=== PATIENT | male | born 1950 | race Caucasian/White ===

== ENCOUNTER 2024-12-07 09:26 | Outpatient (AMB) | payer MEDICARE, SELFPAY ==
--- NOTE | 2024-12-07 09:28 | MHC.OFFVIS ---
Vital Signs 12/07/24 09:29 Height 64 ft Weight 275 lb BMI 0.3 BP 132/80 Blood Pressure Location Rt brachial Position Sitting Intake Visit Reasons: ENP-Memory Impairement Intake Note: Patient referred for memory impairment Allergies amlodipine Allergy (Unknown, Verified 12/07/24 09:30) Unknown cephalexin Allergy (Unknown, Verified 12/07/24 09:30) Unknown pravastatin Allergy (Unknown, Verified 12/07/24 09:30) Unknown simvastatin Allergy (Unknown, Verified 12/07/24 09:30) Unknown HPI Comments Details: 74y/o male comes here for evaluation of memory issues. He was in the at [facility]- [phone] and concerned taht his issues are related to that. He reports for past 20 years he has been having short term memory issues which is progressing.He forgets appointments, meeting etc.He forgets tow era his hearing aids, forgets to take the exit in the [address] , misplacing keys,has troubel doing cross word puzzles , was unable to help his grand daughter with her toys etc. He gets confused with meds and misses doses. he did not wear his hearing aid today. He sleeps ok but reports excessive daytime sleepiness and fatigue. He snores and wakes up 2-3 times at night.His has notcied witnessed apneas.He takes a nap during the day.He has occasional vivid dreams. He had sleep study 15 years ago and used CPAP for 2 mths only. He was also reporting some dizziness when he bends over. Mood is stable [facility] Medical History Urinary calculi HTN (hypertension) Hyperlipidemia Disturbance in sleep behavior Fatty liver Gout Dysplastic nevus Allergic rhinitis Hard of hearing Urinary incontinence Overweight Chronic shoulder pain Prediabetes GERD (gastroesophageal reflux disease) Surgical History Hx of colonoscopy Family History Father Alcohol abuse by father FH: heart attack Stroke HTN (hypertension) Mother HTN (hypertension) Stroke Diabetes Glaucoma Social History Alcohol intake: current Patient Tobacco Use Status: Former Tobacco user Physical Exam Vital Signs: Last Vital Signs BP 132/80 12/07/24 09:29 BMI result Body Mass Index 0.3 Const General: cooperative and comfortable Nutritional Appearance: obese Orientation/consciousness: patient oriented x3 Eyes Pupils: Equal, round and reactive pupils present Neuro General: patient oriented x3, tone normal, moves all extremities and no focal motor deficits Cranial nerves: Yes Facial sensation intact/muscles of mastication intact, Yes Equal, round and reactive pupils present, Yes Bilaterally intact EOM present, Yes Nystagmus not present, Yes Normal facial strength present, Yes Midline tongue present, Yes Symmetric palate elevation present and Yes Ability to bilaterally elevate shoulders present Cognition (Neuro): normal cognition Gait exam (Neuro): Antalgic gait present Motor exam (neuro): 5/5 motor strength present throughout and Normal motor muscle tone present throughout Deep tendon reflexes (DTR's): Right triceps reflex intensity grade: 1+, Left triceps reflex intensity grade: 1+, Rt Biceps (C5, C6): 1+, Left biceps reflex intensity grade: 1+, Right brachioradialis reflex intensity grade: 1+, Left brachioradialis reflex intensity grade: 1+, Right patellar reflex intensity grade: 1+ and Left patellar reflex intensity grade: 1+ Coordination: [id number] test normal Orientation What is the (year) (season) (date) (day) (month)?: year, season, date, day and month Where are we (state) (county) (town or city) (hospital) (floor)?: state, town or city, hospital/clinic and floor Registration Name of 3 unrelated objects clearly and slowly, then ask patient to repeat all 3 of them. (1st repeat determines score. Make sure they can repeat all three): object 1, object 2 and object 3 Attention & Calculation (CHOOSE ONE) Spell WORLD backwards (DLROW): 5 letters Recall Ask patient to repeat the 3 items from question #3.: object 1 Language Show patient a wristwatch & ask what it is. Repeat for pencil.: watch and pencil Ask the patient to repeat the phrase 'No ifs, ands, or buts' after you.: correct Ask the patient to 'take a piece of paper with their right hand' 'fold paper in half' 'place paper on floor': take paper in right hand, fold paper in half and place paper on floor Print the sentence 'CLOSE YOUR EYES' on a piece. If patient actually closes eyes then score.: followed written direction Give patient a blank piece of paper & ask to write a sentence. Score if it contains a noun & verb.: sentence contains subject and verb Ask patient to copy figure of intersecting pentagons exactly. Score if all 10 angles & 2 intersects are included.: all 10 angles present & 2 are intersected Score Score: 27 Assessment & Plan Assessment & Plan (1) Cognitive disorder: Comment: He tested well on MMSE. The cognitive probelems are likely due to untreated sleep apnea Code(s): F09 - Unspecified mental disorder due to known physiological condition Category: Medical (2) Snoring: Code(s): R06.83 - Snoring Category: Medical (3) Hypersomnia: Code(s): G47.10 - Hypersomnia, unspecified Category: Medical Plan I will evaluate him with MRI Brain Check TSH Vit B 12 CBC CMP Home sleep test to evaluate sleep apnea which is likely contributing to his cognitive issues. Orders: Orders MR head/brain wo con Today F09 - Unspecified mental disorder due to known physiological condition Comprehensive Met. Panel Today F09 - Unspecified mental disorder due to known physiological condition Vitamin D 25-OH (D2 and D3) Today F09 - Unspecified mental disorder due to known physiological condition Erythrocyte Sedimentation Rate Today F09 - Unspecified mental disorder due to known physiological condition TSH reflex Free T4 Today F09 - Unspecified mental disorder due to known physiological condition Vitamin B12 and Folate Today F09 - Unspecified mental disorder due to known physiological condition Complete Blood Count Auto Diff Today F09 - Unspecified mental disorder due to known physiological condition RT home sleep study Today G47.10 - Hypersomnia, unspecified, R06.83 - Snoring Coding Level of Care Code New Pt Level 4 (81801) Diagnoses Cognitive disorder F09 Snoring R06.83 Hypersomnia G47.10
[2024-12-07 09:29] VITALS: BP 132/80
--- OUTSIDE RECORDS SUMMARY | 2024-12-07 10:08 | XMS_ITS | Clinical Summary ---
Author Organization [address] Building Address [address] [place] [phone] Phone Care Team Providers Care Media Account Executive Name Role Phone Olvin Rocha MD Primary Care Provider [phone] Allergies Active Allergy Reactions Criticality Noted Date Comments Amlodipine 09/16/2021 Ankle swelling Cephalexin Monohydrate Dermatitis,Rash 09/02/19 06 Pravastatin Sodium Muscular Issues 10/19/2008 Myalgia and Joint Pain Simvastatin Muscular Issues 12/01/2007 Myalgia and Joint Pain Medications cetirizine (ZyrTEC) 10 mg tablet Take 1 tablet (10 mg total) by mouth 1 (one) time each day. 4 Active triamcinolone acetonide 0.025 % lotion Apply 1 Act topically three times a week for 90 days. 2 Active apixaban (ELIQUIS) 5 mg tablet Take 0.5 tablets (2.5 mg total) by mouth 2 (two) times a day. 4 Active atenoloL (TENORMIN) 50 mg tablet Take 1 tablet (50 mg total) by mouth 1 (one) time each day. 90 tablet 1 4 Active FLUoxetine (PROzac) 40 mg capsule Take 1 capsule (40 mg total) by mouth 1 (one) time each day. 90 each 1 5 Active lovastatin (MEVACOR) 20 mg tablet Take 2 tablets (40 mg total) by mouth at bedtime. at bedtime 180 tablet 1 5 Active Active Problems Problem Noted Date Diagnosed Date GERD (gastroesophageal reflux disease) Bilateral pulmonary embolism (CMS/HCC V24, CMS/H CC V28) 08/17/2023 Prediabetes 03/17/2022 Chronic shoulder pain 09/23/2015 Overweight 09/14/2012 Urinary incontinence 02/11/2012 Overview (06/30/2024): For years; saw Dr Vigil; uses pads which help Hard of hearing 09/11/2011 Overview (06/30/2024): Dr Menard, work related Allergic rhinitis 03/30/2010 Anxiety associated with depression 03/30/2010 Assessment & Plan (10/19/2024 9:33 AM EDT): I have increased his fluoxetine dose to 40 mg daily strongly advised him do his lab work. He declines seeing a therapist. 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 Follow sodium diet. Continue atenolol. Urinary calculus 09/02/2005 Overview (06/30/2024): Musa Encounters Date Type Department Care Team Description 10/31/2024 10:45 AM EDT Evaluation [address] [phone] Jacqui Pat, PT Gait abnormality (Primary Dx) 10/19/2024 9:00 AM EDT Office Visit Internal Medicine - [address] [phone] Olvin Rocha MD Forgetfulness (Primary Dx); Gait abnormality; Anxiety associated with depression; Hypertension, unspecified type; Ankle edema, bilateral; Screen for colon cancer 09/19/2024 Telephone Internal Medicine - [address] [place] [address] Olvin Rocha MD Forms/questionnaires (Handicap placard) from Last 3 Months Immunizations Name Administration Dates Next Due Influenza Quadravalent, MDCK , 0.5ml, with preservative (Flucelvax) 6mo and older 04/06/2017 Influenza trivalent, 0.5mL ( Fluad) 65yo and older 04/14/2022,05/13/2020,04/22/2018,04/15 Influenza trivalent, 0.5mL, preservative free (Fluarix; FluLaval; Fluzone) ages 6mo and older (Afluria) 3 years and older 05/08/2015,04/30/2010,06/07/2008,05/17,06/22/2006 Influenza, Unspecified 04/28/2023,04/23/2014 JEYSONJ/Tim SARS-CoV-2 COVID -19, vector-nr, rS-Ad26, preservative free 10/08/2020 Moderna SARS-CoV-2 COVID-19, mRNA, LNP-S, preservative free 05/11/2023,05/15/2022,05/18/2021 Pneumococcal conjugate 13 va lent (Prevnar 13, PCV13) 2mo and older 07/31/2015 Pneumococcal polysaccharide 23 valent (Pneumovax 23) 2yo and older 09/22/2016 RSV, bivalent, protein subun it RSVpreF, 0.5mL, Preservative Free (Arexvy) 60yo and older 09/27/2023 Td Tetanus diptheria (Tdvax) 7yo and older 01/19/2023,03/17/2022,05/02/2001 Tdap Tetanus diptheria acell ular pertussis (Boostrix; Adacel) 7yo and older 09/22/2016,11/25/2010 Zoster Live 04/14/2015 Zoster recombinant (Shingrix ) 19yo and older 09/12/2020,07/04/2020 Surgical History Surgery Date Site/Laterality Comments MOLE REMOVAL PROCEDURE: HISTORICAL MOLE (REMOVAL OF) COLONOSCOPY 02/27 PROCEDURE: VA COLONOSCOPY STOMA DX INCLUDING COLLJ SPEC SPX; COMMENT: Jermaine; neg OTHER SURGICAL HISTORY 06/17/15 PROCEDURE: COLON CA SCRN NOT HI RSK IND; COMMENT: tics; repeat in 10 yrs Medical History Medical History Date Comments Heartburn 09/02/2005 DX:Heartburn Sleep disturbance, unspecified 09/02/2005 D X:Sleep disturbance, unspecified Urinary calculus, unspecified 09/02/2005 DX :Urinary calculus, unspecified Other and unspecified hyperlipidemia 09/02/2005 DX:Other and unspecified hyperlipidemia Rib fracture 06/01 DX:Rib fracture; COMMENT: seen thru work , not here Fatty liver 02/07/2009 DX:Fatty liver Dysplastic nevus 2009 DX:Dysplastic n evus Esophageal reflux DX:Esophageal reflux Essential hypertension, benign 09/02/2005 D X:Essential hypertension, benign Allergic rhinitis 03/30/2010 DX:Allergic rh initis Depression 03/30/2010 DX:Depression Family History Medical History Relation Name Comments No Known Problems Brother x2 Obesity Daughter Alcohol abuse Father Heart attack Father passed early 40 's Hypertension Father Stroke Father Diabetes Mother HTN, CVA (clot) , glaucoma, cataract Glaucoma Mother Hypertension Mother Stroke Mother passed from str gianfranco No Known Problems Sister Obesity Son Other: dvt Son Blindness Neg Hx Macular degeneration Neg Hx Other cancer Neg Hx Strabismus Neg Hx Relation Name Status Comments Brother x2 Alive Daughter Alive Father Mother Sister Alive Son Alive Social History Tobacco Use Types Packs/Day Years Used Date Smoking Tobacco: Former Cigarettes 0.5 2 0 07/26/1969 - 07/26/1971 Smokeless Tobacco: Never Tobacco Cessation:Counseling Given: Not Answered Alcohol Use Standard Drinks/Week Comments Yes 0 (1 standard drink = 0.6 oz pur e alcohol) Sex and Gender Information Value Date Recorded Sex Assigned at Not on file Legal Sex Male 6:44 AM EST Gender Identity Not on file Sexual Orientation Not on file Obstetrics History Last Filed Vital Signs Vital Sign Reading Time Taken Comments Blood Pressure 132/76 10/19/2024 8:53 AM EDT aut o Pulse 65 10/19/2024 8:53 AM EDT Temperature - - Respiratory Rate - - Oxygen Saturation - - Inhaled Oxygen Concentration - - Weight 123 kg (272 lb 3.2 oz) 10/19/2024 8:53 AM EDT Height 193 cm (6' 4 ) 10/19/2024 8:53 AM EDT Body Mass Index 33.13 10/19/2024 8:53 AM EDT Plan of Treatment Upcoming Encounters Date Type Department Care Team (Late st Contact Info) Description 12/26/2024 4:00 PM EDT Telemedicine Internal Medicine - [address] [phone] Olvin Rocha MD [address] [place] [phone] 03/28/2025 8:30 AM EDT Office Visit Internal Medicine - [address] [phone] Olvin Rocha MD [address] [place] [phone] Health Maintenance Due Date Last Done Comments Falls Risk Assessment 07/04/2022 Social Influencers of Health Screening 07/04/2022 Depression Screening 09/23/2024 09/24/2023 Medicare Annual Wellness Visit 09/23/2024 09/24/2023 COVID-19 Vaccine ( season) 2024 05/12/2024, 05/11/2023, 05/15/2022, Additional history exists Colorectal Cancer Screening: Colonoscopy 06/17/2025 06/17/2015, 06/17/2015 Hypertension/CHF/CAD Annual BMP Blood Test 10/23/2025 10/23/2024, 08/11/2023, 03/17/2023 Cholesterol Screening (Lipid Panel) 10/23/2029 10/23/2024, 03/17/2023 DTaP,Tdap,and Td Vaccines (8 - Td or Tdap) 01/19/2033 01/19/2023, 03/17/2022, 09/22/2016, Additional history exists Abdominal Aortic Aneurysm (AAA) Screen Completed 12/13/2008 Hepatitis C Screening Completed 02/06/2009 Pneumococcal Vaccine: 50+ Years Completed 09/22/2016, 07/31/2015 Zoster Vaccines Completed 09/12/2020, 06/25, 04/14/2015 RSV Immunization Adult Patients Completed 09/27/2023 Influenza Vaccine Completed 05/12/2024, , 04/28/2023, Additional history exists HIB Vaccines Aged Out No longer eligi ble based on patient's age to complete this topic HPV Vaccines Aged Out No longer eligi ble based on patient's age to complete this topic Hepatitis A Vaccines Aged Out No long er eligible based on patient's age to complete this topic Hepatitis B Vaccines Aged Out No long er eligible based on patient's age to complete this topic IPV Vaccines Aged Out No longer eligi ble based on patient's age to complete this topic MMR Vaccines Aged Out No longer eligi ble based on patient's age to complete this topic Meningococcal ACWY Vaccine Aged Out N o longer eligible based on patient's age to complete this topic Meningococcal B Vaccine Aged Out No l onger eligible based on patient's age to complete this topic RSV Immunization Patients Under 20 months Aged Out No longer eligible based on patient's age to complete this topic Varicella Vaccines Aged Out No longer eligible based on patient's age to complete this topic Goals Goal Patient Goal Type Associated Problems Recent Progress Patient-Stated? Author LTGs (x6 visits) General Yes Jacqui Pat, PT Note: Patient will increase L hip flexion and extension strength to >/= 4-/5 for strength and stability during functional mobility Patient will increase L hip abduction strength to >/= 3+ for stability during stance phase and ambulation Patient will decrease time on 5xSTS to </= 12 seconds to show increase in functional strength and decrease in falls risk Patient will increase score on FGA to >/= 24/30 to show increase in dynamic balance and decrease in falls risk Patient will be independent with HEP for maintenance and progression of gains made in skilled physical therapy Procedures Procedure Name Priority Date/Time Associated Diagnosis Comments CBC WITH AUTO DIFFERENTIAL Routine 10/23/2024 8:44 AM EDT Bilateral pulmonary embolism (CMS/HCC V24, CMS/HCC V28) HEMOGLOBIN A1C Routine 10/23/2024 8:44 AM EDT Prediabetes COMPREHENSIVE METABOLIC PANEL Routine 10/23/2024 8:44 AM EDT Hypertension, unspecified type LIPID PANEL WITH REFLEX TO DIRECT LDL Routine 10/23/2024 8:44 AM EDT Hypertension, unspecified type PROSTATE SPECIFIC ANTIGEN SCREEN Routine 10/23/2024 8:44 AM EDT Screening for prostate cancer CBC AND DIFFERENTIAL Routine 10/23/2024 8:44 AM EDT Bilateral pulmonary embolism (CMS/HCC V24, CMS/HCC V28) B-TYPE NATRIURETIC PEPTIDE Routine 10/23/2024 8:44 AM EDT Ankle edema, bilateral DEPRESSION SCREENING Routine 09/24/2023 COLONOSCOPY Routine 06/17/2015 HEPATITIS C SCREENING Routine 02/06/2009 ABDOMINAL AORTIC ANEURYSM SCRREN Routine 12/13/2008 from Last 3 Months or Most Recently Relevant to Health Maintenance Results * Prostate specific antigen screen (10/23/2024 8:44 AM EDT) PSA 0.71 0.00 - 4.00 ng/mL LAB CHEMISTRY METHOD 10/23/2024 2:27 PM EDT [facility] ([facility]) [facility] Blood Venous blood specimen / Unknown Venipuncture / Unknown 10/23/2024 8:44 AM EDT 10/23/2024 8:44 AM EDT Narrative [facility] - 10/23/2024 2:27 PM EDT The Siemens Advia Centaur Chemiluminescent Immunoassay is used. Results obtained with different assay methods or kits cannot be used interchangeably. Results cannot be interpreted as absolute evidence of the presence or absence of malignant disease. Olvin Rocha MD LAB BLOOD ORDERABLES Elizabeth l Result [facility] [address] [place] [address], [place] [phone] * (ABNORMAL) Lipid panel with reflex to direct LDL (10/23/2024 8:44 AM EDT) Cholesterol 191 0 - 200 mg/dL LAB CHEMISTRY METHOD 10/23/2024 1:51 PM EDT [facility] Triglycerides 116 0 - 150 mg/dL LAB CHEMISTRY METHOD 10/23/2024 1:51 PM EDT [facility] HDL 43 >=40 mg/dL LAB CHEMISTRY METHOD 10/23/2024 1:51 PM EDT [facility] LDL Calculated 125(H) 0 - 100 mg/dL LAB CHEMISTRY METHOD 10/23/2024 1:51 PM EDT [facility] VLDL Cholesterol Janes 23.2 mg/dL LAB CHEMISTRY METHOD 10/23/2024 1:51 PM EDT [facility] Non HDL Chol. (LDL+VLDL) 148(H) <145 mg/dL LAB CHEMISTRY METHOD 10/23/2024 1:51 PM EDT [facility] Chol/HDL Ratio 4.4 0.0 - 4.4 LAB CHEMISTRY METHOD 10/23/2024 1:51 PM EDT [facility] Blood Venous blood specimen / Unknown Venipuncture / Unknown 10/23/2024 8:44 AM EDT 10/23/2024 8:44 AM EDT Olvin Rocha MD LAB BLOOD ORDERABLES Elizabeth l Result [facility] [address] [place] [address], * (ABNORMAL) CBC auto differential (10/23/2024 8:44 AM EDT) [facility] Signature WBC 5.2 4.8 - 10.8 K/mcL LAB HEMETOLOGY METHOD 10/23/2024 1:04 PM EDT [facility] RBC 5.20 4.50 - 5.50 M/mcL LAB HEMETOLOGY METHOD 10/23/2024 1:04 PM EDT [facility] Hemoglobin 16.2 13.5 - 17.5 g/dL LAB HEMETOLOGY METHOD 10/23/2024 1:04 PM EDT [facility] Hematocrit 48.5 42.0 - 54.0 % LAB HEMETOLOGY METHOD 10/23/2024 1:04 PM EDT [facility] MCV 92.7 79.0 - 98.0 FL LAB HEMETOLOGY METHOD 10/23/2024 1:04 PM EDT [facility] MCH 31.0 27.0 - 32.0 pcg LAB HEMETOLOGY METHOD [facility]/23[facility]24 [facility] MCHC 33.4 32.0 - 37.0 g/dL LAB HEMETOLOGY METHOD 10/23/2024 1:04 PM EDT [facility] RDW 12.9 11.0 - 15.0 % LAB HEMETOLOGY METHOD 10/23/2024 1:04 PM EDT [facility] Platelets 158 130 - 400 K/mcL LAB HEMETOLOGY METHOD 10/23/2024 1:04 PM EDT [facility] MPV 11.2(H) 7.0 - 11.0 FL LAB HEMETOLOGY METHOD 10/23/2024 1:04 PM EDT [facility] NRBC 0.0 <1.0 % LAB HEMETOLOGY METHOD 10/23/2024 1:04 PM [facility] NRBC Absolute 0.00 <0.10 K/mcL LAB HEMETOLOGY METHOD 10/23/2024 1:04 PM [facility] Neutrophils Relative 55.7 % LAB HEMETOLOGY METHOD 10/23/2024 1:04 PM [facility] Lymphocytes Relative 28.3 % LAB HEMETOLOGY METHOD 10/23/2024 1:04 PM [facility] Monocytes Relative 10.2 % LAB HEMETOLOGY METHOD 10/23/2024 1:04 PM [facility] Eosinophils Relative 4.2 % LAB HEMETOLOGY METHOD 10/23/2024 1:04 PM [facility] Basophils Relative 1.2 % LAB HEMETOLOGY METHOD 10/23/2024 1:04 PM [facility] Immature Granulocytes Relative 0.4 % LAB HEMETOLOGY METHOD 10/23/2024 1:04 PM [facility] Neutrophils Absolute 2.90 1.50 - 7.00 K/mcL LAB HEMETOLOGY METHOD 10/23/2024 1:04 PM [facility] Lymphocytes Absolute 1.47 1.00 - 5.00 K/mcL LAB HEMETOLOGY METHOD 10/23/2024 1:04 PM [facility] Monocytes Absolute 0.53 0.20 - 1.00 K/mcL LAB HEMETOLOGY METHOD 10/23/2024 1:04 PM [facility] Eosinophils Absolute 0.22 0.00 - 0.50 K/mcL LAB HEMETOLOGY METHOD 10/23/2024 1:04 PM [facility] Basophils Absolute 0.06 0.00 - 0.20 K/mcL LAB HEMETOLOGY METHOD 10/23/2024 1:04 PM EDT [facility] Immature Granulocytes Absolute 0.02 0.00 - 0.03 K/mcL LAB HEMETOLOGY METHOD 10/23/2024 1:04 PM EDT [facility] Blood Venous blood specimen / Unknown Venipuncture / Unknown 10/23/2024 8:44 AM EDT 10/23/2024 8:44 AM EDT Olvin Rocha MD LAB BLOOD ORDERABLES Elizabeth l Result [facility] [address] [place] [address], * B-type natriuretic peptide (10/23/2024 8:44 AM EDT) BNP 83 <=100 pcg/mL LAB CHEMISTRY METHOD 10/23/2024 2:59 PM EDT [facility] Blood Venous blood specimen / Unknown Venipuncture / Unknown 10/23/2024 8:44 AM EDT 10/23/2024 8:44 AM EDT Olvin Rocha MD LAB BLOOD ORDERABLES Elizabeth l Result Performing Organization Address City/[facility]/ZIP Co de Phone Number [facility] [address] [place] [address], * Hemoglobin A1c (10/23/2024 8:44 AM EDT) Hemoglobin A1C 6.1 <6.5 % LAB CHEMISTRY METHOD 10/23/2024 2:13 PM EDT [facility] Mean Bld Glu Estim. 128 mg/dL LAB CHEMISTRY METHOD 10/23/2024 2:13 PM EDT [facility] Blood Venous blood specimen / Unknown Venipuncture / Unknown 10/23/2024 8:44 AM EDT 10/23/2024 8:44 AM EDT us Olvin Rocha MD LAB BLOOD ORDERABLES Elizabeth naseem Result [facility] [address] [place] [address], [place] [phone] * (ABNORMAL) Comprehensive metabolic panel (10/23/2024 8:44 AM EDT) Sodium 141 133 - 145 mmol/L LAB CHEMISTRY METHOD 10/23/2024 1:51 PM EDT [facility] Potassium 4.4 3.5 - 5.5 mmol/L LAB CHEMISTRY METHOD 10/23/2024 1:51 PM [facility] Chloride 107 96 - 110 mmol/L LAB CHEMISTRY METHOD 10/23/2024 1:51 PM [facility] CO2 28 21 - 32 mmol/L LAB CHEMISTRY METHOD 10/23/2024 1:51 PM [facility] Anion Gap 6 3 - 11 LAB CHEMISTRY METHOD 10/23/2024 1:51 PM [facility] Glucose 119(H) 70 - 100 mg/dL LAB CHEMISTRY METHOD 10/23/2024 1:51 PM [facility] BUN 15 5 - 25 mg/dL LAB CHEMISTRY METHOD 10/23/2024 1:51 PM [facility] Creatinine 0.98 0.70 - 1.30 mg/dL LAB CHEMISTRY METHOD 10/23/2024 1:51 PM [facility] eGFR 81 >=60 mL/min/1. 73m2 LAB CHEMISTRY METHOD 10/23/2024 1:51 PM [facility] Comment:Calculation based on the??Chronic Kidney Disease Epidemiology Collaboration (CKD-EPI) equation refit??without adjustment for race. BUN/Creatinine Ratio 15.3 LAB CHEMISTRY METHOD 10/23/2024 1:51 PM [facility] Calcium 9.3 8.5 - 10.5 mg/dL LAB CHEMISTRY METHOD 10/23/2024 1:51 PM EDT [facility] AST (SGOT) 20 10 - 42 unit/L LAB CHEMISTRY METHOD 10/23/2024 1:51 PM T [facility] ALT (SGPT) 34 10 - 60 unit/L LAB CHEMISTRY METHOD 10/23/2024 1:51 PM EDT [facility] Alkaline Phosphatase 59 42 - 121 unit/L LAB CHEMISTRY METHOD 10/23/2024 1:51 PM EDT [facility] Total Protein 7.4 6.0 - 8.0 g/dL LAB CHEMISTRY METHOD 10/23[facility]2024 [facility] Albumin 3.7 3.2 - 5.0 g/dL LAB CHEMISTRY METHOD 10/23/2024 1:51 PM [facility] Total Bilirubin 0.8 0.0 - 1.4 mg/dL LAB CHEMISTRY METHOD 10/23/2024 1:51 PM EDT [facility] Blood Venous blood specimen / Unknown Venipuncture / Unknown 10/23/2024 8:44 AM EDT 10/23/2024 8:44 AM EDT Olvin Rocha MD LAB BLOOD ORDERABLES Elizabeth l Result [facility] [address] [place] [address], * Depression Screening (09/24/2023) Pathologist [facility] Depression Screening abstracted Historical Provider HEALTH MAINTENANCE Final Result * Colonoscopy (06/17/2015) Pathologist [facility] Colonoscopy no interpretation , abstracted Anatomical Region Laterality Modality Other Historical Provider HEALTH MAINTENANCE Final Result * Hepatitis C Screening (02/06/2009) Pathologist [facility] Hepatitis C Screening abstracted us Historical Provider HEALTH MAINTENANCE Final Result * Abdominal Aortic Aneurysm Screen (12/13/2008) Abdominal Aortic Aneurysm (AAA) Screening abstracted Anatomical Region Laterality Modality Other us Historical Provider HEALTH MAINTENANCE Final Result from Last 3 Months or Most Recently Relevant to Health Maintenance Insurance [employer] Care Teams Media Account Executive Relationship Specialty Start Date End Date Olvin Rocha MD [address] [place] [id number] PCP - General Internal Medicine 08/18/17
== END 2024-12-07 10:14 | disposition home or self-care (01) ==
LOC: HO.HSMS 09:27
PROVIDERS: PCP Internal Medicine; Visit Provider Psychiatry & Neurology Neurology
DX: R41.89 Other symptoms and signs involving cognitive functions and awareness (principal); R06.83 Snoring; G47.10 Hypersomnia, unspecified
CPT/HCPCS: 99204

== ENCOUNTER 2024-12-07 09:26 | Outpatient (REF) | payer MEDICARE, SELFPAY ==
--- OUTSIDE RECORDS SUMMARY | 2024-12-07 11:40 | XMS_ITS | Encounter Summary ---
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 Name Role Phone Sergio Church MD Primary Care Provider [facility] Olvin Rocha MD Primary Care Provider [phone] Encounter Details Date Type Department Care Team Description 02/21/2015 DOT Physical Forms Medical Records [address] [place] [address] Abstract, Provider Social History Tobacco Use Types Packs/Day Years Used Date Smoking Tobacco: Former Cigarettes 0.5 5 Cigars Comments:smoker 20 yr ago Alcohol Use Standard Drinks/Week Comments Yes 0 (1 standard drink = 0.6 oz pure alcohol) might have 3-4 beers per week, if that Alcohol Habits Answer Date Recorded How often do you have a drink containing alcohol ? Monthly or less 09/24/2023 How many drinks containing a lcohol do you have on a typical day when you are drinking? 1 or 2 09/24/2023 How often do you have six or more drinks on one occasion? Never 09/24/2023 Social Isolation Answer Date Recorded In a typical week, how many times do you talk on the phone with family, friends, or neighbors? Three times a week 09/24/2023 How often do you get togethe r with friends or relatives? More than three times a week 09/24/2023 How often do you attend [facility] or rastafarian services? Never 09/24/2023 Do you belong to any clubs o r organizations such as uatsdin groups, unions, fraternal or athletic groups, or school groups? Yes 09/24/2023 How often do you attend meet ings of the clubs or organizations you belong to? More than 4 times per year 09/24/2023 Are you now , , , , never or living with a partner? 09/24/2023 Physical Activity Answer Date Recorded On average, how many days pe r week do you engage in moderate to strenuous exercise (like walking fast, running, jogging, dancing, swimming, biking, or other activities that cause a light or heavy sweat)? 0 days 09/24/2023 On average, how many minutes do you engage in exercise at this level? 0 min 09/24/2023 Stress Answer Date Recorded Do you feel stress - tense, restless, nervous, or anxious, or unable to sleep at night because your mind is troubled all the time - these days? To some extent 09/24/2023 Financial Resource Strain Answer Date R ecorded How hard is it for you to pa y for the very basics like food, housing, medical care, and heating? Not hard at all 09/24/2023 Intimate Partner Violence Answer Date R ecorded Within the last year, have y ou been afraid of your partner or ex-partner? No 09/24/2023 Within the last year, have y ou been humiliated or emotionally abused in other ways by your partner or ex-partner? No Within the last year, have y ou been kicked, hit, slapped, or otherwise physically hurt by your partner or ex-partner? No 09/24/2023 Within the last year, have y ou been raped or forced to have any kind of sexual activity by your partner or ex-partner? No 09/24/2023 Food Insecurity Answer Date Recorded Within the past 12 months, y ou worried that your food would run out before you got money to buy more. Never true 09/24/2023 Within the past 12 months, t he food you bought just didn't last and you didn't have money to get more. Never true 09/24/2023 Transportation Needs Answer Date Record ed In the past 12 months, has l ack of transportation kept you from medical appointments or from getting medications? No 07/2023 In the past 12 months, has l ack of transportation kept you from meetings, work, or getting things needed for daily living? No 09/24/2023 Housing Stability Answer Date Recorded In the last 12 months, was t here a time when you were not able to pay the mortgage or rent on time? No 09/24/2023 In the last 12 months, how many places have you lived? 1 09/24/2023 In the last 12 months, was t here a time when you did not have a steady place to sleep or slept in a prison (including now)? No 09/24/2023 Sex Assigned at Date Recorded Male 06/27/2024 7:[address] Job Start Date Occupation Industry Not on file Not on file Not on file documented as of this encounter Plan of Treatment Not on file documented as of this encounter Visit Diagnoses Not on filedocumented in this encounter Care Teams Gasoline Catalyst Operator Relationship Specialty Start Date End Date Sergio Church MD PCP - General Internal Medicine 10/14/11 08/17/17 Olvin Rocha MD [address] [place] [address] PCP - General Internal Medicine 08/18/17 documented as of this encounter
--- OUTSIDE RECORDS SUMMARY | 2024-12-07 11:40 | XMS_ITS | Encounter Summary ---
Author Organization [facility] Address [address] [place] [address] Care Team Providers Care Egg Crater Name Role Phone Sergio Church MD Primary Care Provider [facility] Olvin Rocha MD Primary Care Provider [phone] Reason for Visit * Reason Onset Date Comments medication problems 08/17/2017 Encounter Details Date Type Department Care Team Description 08/17/2017 Telephone Adult Medicine [facility] [address] [place] [address] Sergio Church MD medication problems Social History Tobacco Use Types Packs/Day Years Used Date Smoking Tobacco: Former Cigarettes 0.5 5 Cigars Smokeless Tobacco: Never Comments:smoker 20 yr ago Alcohol Use Standard [...] week 09/24/2023 How often do you attend chur ch or voodoo services? Never 09/24/2023 Do you belong to any clubs o r organizations such as presybeterian groups, unions, fraternal or athletic groups, or [...] place to sleep or slept in a chcf (including now)? No 09/24/2023 Sex Assigned at Date Recorded Male 06/27/2024 7:[address] Job Start Date Occupation Industry Not on file Not on file Not on file documented as of this encounter Miscellaneous Notes * Telephone Encounter - Tonja Martinez M.A. - 08/17/2017 4:05 PM EST Spoke with the pt. He was very upset that PCP will not give him the 90 day supply of medication. Tried to explain to the pt that he was given a 30 day supply on 08/06/17 until he is seen. The pt said this is ridiculous. They can keep the 30 day . He will not pick them up. Then hung up the phone. (FYI) to PCP * Telephone Encounter - Trini Giordano - 08/17/2017 3:59 PM EST Patient calling stating he's medications were not sent to pharmacy states he just called and they do not have anything. See previous medication problem encounter. documented in this encounter Plan of Treatment Not on file documented as of this encounter Visit Diagnoses Not on filedocumented in this encounter Care Teams Egg Crater Relationship Specialty Start Date End Date Sergio Church MD PCP - General Internal Medicine 10/14/11 08/17/17 Olvin Rocha MD [address] [place] [address] PCP - General Internal Medicine 08/18/17 documented as of this encounter
--- OUTSIDE RECORDS SUMMARY | 2024-12-07 11:40 | XMS_ITS | Encounter Summary ---
Author Organization [facility] Address [address] [place] [address] Care Team Providers Care Soft Shoe Dancer Name Role Phone Olvin Rocha MD Primary Care Provider [phone] Encounter Details Date Type Department Care Team Description 04/05/2022 Pt. Non Urgent Medical Question Adult Medicine [facility] [address] [place] [address] Katy Paredes, SWINE NUTRITIONIST [address] [place] [address] Social History Tobacco Use Types Packs/Day Years Used Date Smoking Tobacco: Former Cigarettes 0.5 5 1 970 - 1972 Cigars Smokeless Tobacco: Never Comments:smoker 20 yr [...] 09/24/2023 How often do you attend chur or sabianist services? Never 09/24/2023 Do you belong to any clubs o r organizations such as zoroastrian groups, unions, fraternal or athletic groups, or [...] place to sleep or slept in a jail (including now)? No 09/24/2023 Sex Assigned at Date Recorded Male 06/27/2024 7:[address] Job Start Date Occupation Industry Not on file Not on file Not on file COVID-19 Exposure Response Date Recorded In the last 10 days, have yo u been in contact with someone who was confirmed or suspected to have Coronavirus/COVID-19? No / Unsure 03/17/2022 8:45 AM EDT documented as of this encounter Miscellaneous Notes * Telephone Encounter - Ca Morgan - 04/06/2022 8:21 AM EDTFrom: Delfino Lares To: Briana Paredes Sent: 04/05/2022 10:00 AM EDT Subject: I have a 9:30 appoint. my is seeing Dr salguero at 2:00 prefer 1 visit can we both see Dr. Salguero at 2;00 1trip mine is a recheck for blood pressure. did you receive my provided [facility]. can we send a verification to [place] Dr Isbell about my tetanus shot . thanks documented in this encounter Plan of Treatment Not on file documented as of this encounter Visit Diagnoses Not on filedocumented in this encounter Care Teams Soft Shoe Dancer Relationship Specialty Start Date End Date Olvin Rocha MD [address] [place] [id number] PCP - General Internal Medicine 08/18/17 documented as of this encounter
--- OUTSIDE RECORDS SUMMARY | 2024-12-07 11:40 | XMS_ITS | Clinical Summary ---
Author Organization [address] Building Address [address] [place] [phone] Phone Care Team Providers Care Presbyterian Clergy Name Role Phone Olvin Rocha MD Primary Care Provider [phone] [phone] Allergies Active Allergy Reactions Criticality Noted Date [...] Team Description 10/31/2024 10:45 AM EDT Evaluation [address] [address] Jacqui Pat, PT Gait abnormality (Primary Dx) 10/19/2024 9:00 AM EDT Office Visit Internal Medicine - [address] [address] Olvin Rocha MD Forgetfulness (Primary Dx); Gait abnormality; Anxiety associated with depression; Hypertension, unspecified type; Ankle edema, bilateral; Screen for colon cancer 09/19/2024 Telephone Internal Medicine - [address] [place] [address] Olvin Rocha MD Forms/questionnaires (Handicap placard) from [...] HISTORICAL MOLE (REMOVAL OF) COLONOSCOPY 02/27 PROCEDURE: [place] COLONOSCOPY STOMA DX INCLUDING COLLJ SPEC SPX; [...] 4:00 PM EDT Telemedicine Internal Medicine - [address] [address] Olvin Rocha MD [address] [place] [phone] 03/28/2025 8:30 AM EDT Office Visit Internal Medicine - [address] [phone] Olvin Rocha MD [address] [place] [phone] Health Maintenance Due Date Last Done Comments [...] LAB CHEMISTRY METHOD 10/23/2024 2:27 PM EDT [facility] ([facility] Blood Venous blood specimen / Unknown Venipuncture / Unknown 10/23/2024 8:44 AM EDT 10/23/2024 8:44 AM EDT Narrative [facility] - 10/23/2024 2:27 PM EDT The Siemens Advia Centaur Chemiluminescent Immunoassay is used. Results obtained with different assay methods or kits cannot be used interchangeably. Results cannot be interpreted as absolute evidence of the presence or absence of malignant disease. Olvin Rocha MD LAB BLOOD ORDERABLES Elizabeth l Result [facility] [address] [place] [address], [place] [phone] * (ABNORMAL) Lipid panel with reflex to direct LDL (10/23/2024 8:44 AM EDT) Cholesterol 191 0 - 200 mg/dL LAB CHEMISTRY METHOD 10/23/2024 1:51 PM EDT [facility] Triglycerides 116 0 - 150 mg/dL LAB CHEMISTRY METHOD 10/23/2024 1:51 PM EDT [facility] HDL 43 >=40 mg/dL LAB CHEMISTRY METHOD 10/23/2024 1:51 PM EDT [facility] LDL Calculated 125(H) 0 - 100 mg/dL LAB CHEMISTRY METHOD 10/23/2024 1:51 PM EDT [facility] VLDL Cholesterol Janes 23.2 mg/dL LAB CHEMISTRY METHOD 10/23/2024 1:51 PM EDT [facility] Non HDL Chol. (LDL+VLDL) 148(H) <145 mg/dL LAB CHEMISTRY METHOD 10/23/2024 1:51 PM EDT [facility] Chol/HDL Ratio 4.4 0.0 - 4.4 LAB CHEMISTRY METHOD 10/23/2024 1:51 PM EDT [facility] Blood Venous blood specimen / Unknown Venipuncture / Unknown 10/23/2024 8:44 AM EDT 10/23/2024 8:44 AM EDT Olvin Rocha MD LAB BLOOD ORDERABLES Elizabeth l Result [facility] [address] [place] [address], * (ABNORMAL) CBC auto differential (10/23/2024 8:44 AM EDT) [facility] Signature WBC 5.2 4.8 - 10.8 K/mcL LAB HEMETOLOGY METHOD 10/23/2024 1:04 PM EDT [facility] RBC 5.20 4.50 - 5.50 M/mcL LAB HEMETOLOGY METHOD 10/23/2024 1:04 PM EDT [facility] Hemoglobin 16.2 13.5 - 17.5 g/dL LAB HEMETOLOGY METHOD 10/23/2024 1:04 PM EDT [facility] Hematocrit 48.5 42.0 - 54.0 % LAB HEMETOLOGY METHOD 10/23/2024 1:04 PM EDT [facility] MCV 92.7 79.0 - 98.0 FL LAB HEMETOLOGY METHOD 10/23/2024 1:04 PM EDT [facility] MCH 31.0 27.0 - 32.0 pcg LAB HEMETOLOGY METHOD [facility]24 [facility] MCHC 33.4 32.0 - 37.0 g/dL LAB HEMETOLOGY METHOD 10/23/2024 1:04 PM EDT [facility] RDW 12.9 11.0 - 15.0 % LAB HEMETOLOGY METHOD 10/23/2024 1:04 PM EDT [facility] Platelets 158 130 - 400 K/mcL LAB HEMETOLOGY METHOD 10/23/2024 1:04 PM EDT [facility] MPV 11.2(H) 7.0 - 11.0 FL LAB HEMETOLOGY METHOD 10/23/2024 1:04 PM EDT [facility] NRBC 0.0 <1.0 % LAB HEMETOLOGY METHOD 10/23/2024 1:04 PM [facility] NRBC Absolute 0.00 <0.10 K/mcL LAB HEMETOLOGY METHOD 10/23/2024 1:04 PM [facility] Neutrophils Relative 55.7 % LAB HEMETOLOGY METHOD 10/23/2024 1:04 PM [facility] Lymphocytes Relative 28.3 % LAB HEMETOLOGY METHOD 10/23/2024 1:04 PM [facility] Monocytes Relative 10.2 % LAB HEMETOLOGY METHOD 10/23/2024 1:04 PM [facility] Eosinophils Relative 4.2 % LAB HEMETOLOGY METHOD 10/23/2024 1:04 PM [facility] Basophils Relative 1.2 % LAB HEMETOLOGY METHOD 10/23/2024 1:04 PM [facility] Immature Granulocytes Relative 0.4 % LAB HEMETOLOGY METHOD 10/23/2024 1:04 PM [facility] Neutrophils Absolute 2.90 1.50 - 7.00 K/mcL LAB HEMETOLOGY METHOD 10/23/2024 1:04 PM [facility] Lymphocytes Absolute 1.47 1.00 - 5.00 K/mcL LAB HEMETOLOGY METHOD 10/23/2024 1:04 PM [facility] Monocytes Absolute 0.53 0.20 - 1.00 K/mcL LAB HEMETOLOGY METHOD 10/23/2024 1:04 PM [facility] Eosinophils Absolute 0.22 0.00 - 0.50 K/mcL LAB HEMETOLOGY METHOD 10/23/2024 1:04 PM [facility] Basophils Absolute 0.06 0.00 - 0.20 K/mcL LAB HEMETOLOGY METHOD 10/23/2024 1:04 PM EDT [facility] Immature Granulocytes Absolute 0.02 0.00 - 0.03 K/mcL LAB HEMETOLOGY METHOD 10/23/2024 1:04 PM EDT [facility] Blood Venous blood specimen / Unknown Venipuncture / Unknown 10/23/2024 8:44 AM EDT 10/23/2024 8:44 AM EDT Olvin Rocha MD LAB BLOOD ORDERABLES Elizabeth l Result [facility] [address] [place] [address], * B-type natriuretic peptide (10/23/2024 8:44 AM EDT) BNP 83 <=100 pcg/mL LAB CHEMISTRY METHOD 10/23/2024 2:59 PM EDT [facility] Blood Venous blood specimen / Unknown Venipuncture / Unknown 10/23/2024 8:44 AM EDT 10/23/2024 8:44 AM EDT Olvin Rocha MD LAB BLOOD ORDERABLES Elizabeth l Result Performing Organization Address City/[facility]/ZIP Co de Phone Number [facility] [address] [place] [address], * Hemoglobin A1c (10/23/2024 8:44 AM EDT) Hemoglobin A1C 6.1 <6.5 % LAB CHEMISTRY METHOD 10/23/2024 2:13 PM EDT [facility] Mean Bld Glu Estim. 128 mg/dL LAB CHEMISTRY METHOD 10/23/2024 2:13 PM EDT [facility] Blood Venous blood specimen / Unknown Venipuncture / Unknown 10/23/2024 8:44 AM EDT 10/23/2024 8:44 AM EDT us Olvin Rocha MD LAB BLOOD ORDERABLES Elizabeth naseem Result [facility] [address] [place] [address], [place] [phone] * (ABNORMAL) Comprehensive metabolic panel (10/23/2024 8:44 AM EDT) Sodium 141 133 - 145 mmol/L LAB CHEMISTRY METHOD 10/23/2024 1:51 PM EDT [facility] Potassium 4.4 3.5 - 5.5 mmol/L LAB CHEMISTRY METHOD 10/23/2024 1:51 PM [facility] Chloride 107 96 - 110 mmol/L LAB CHEMISTRY METHOD 10/23/2024 1:51 PM [facility] CO2 28 21 - 32 mmol/L LAB CHEMISTRY METHOD 10/23/2024 1:51 PM [facility] Anion Gap 6 3 - 11 LAB CHEMISTRY METHOD 10/23/2024 1:51 PM [facility] Glucose 119(H) 70 - 100 mg/dL LAB CHEMISTRY METHOD 10/23/2024 1:51 PM [facility] BUN 15 5 - 25 mg/dL LAB CHEMISTRY METHOD 10/23/2024 1:51 PM [facility] Creatinine 0.98 0.70 - 1.30 mg/dL LAB CHEMISTRY METHOD 10/23/2024 1:51 PM [facility] eGFR 81 >=60 mL/min/1. 73m2 LAB CHEMISTRY METHOD 10/23/2024 1:51 PM [facility] Comment:Calculation based on the??Chronic Kidney Disease Epidemiology Collaboration (CKD-EPI) equation refit??without adjustment for race. BUN/Creatinine Ratio 15.3 LAB CHEMISTRY METHOD 10/23/2024 1:51 PM [facility] Calcium 9.3 8.5 - 10.5 mg/dL LAB CHEMISTRY METHOD 10/23/2024 1:51 PM EDT [facility] AST (SGOT) 20 10 - 42 unit/L LAB CHEMISTRY METHOD 10/23/2024 1:51 PM T [facility] ALT (SGPT) 34 10 - 60 unit/L LAB CHEMISTRY METHOD 10/23/2024 1:51 PM EDT [facility] Alkaline Phosphatase 59 42 - 121 unit/L LAB CHEMISTRY METHOD 10/23/2024 1:51 PM EDT [facility] Total Protein 7.4 6.0 - 8.0 g/dL LAB CHE[facility]STRY [facility]24 [facility] Albumin 3.7 3.2 - 5.0 g/dL LAB CHEMISTRY METHOD 10/23/2024 1:51 PM [facility] Total Bilirubin 0.8 0.0 - 1.4 mg/dL LAB CHEMISTRY METHOD 10/23/2024 1:51 PM EDT [facility] Blood Venous blood specimen / Unknown Venipuncture / Unknown 10/23/2024 8:44 AM EDT 10/23/2024 8:44 AM EDT Olvin Rocha MD LAB BLOOD ORDERABLES Elizabeth l Result [facility] [address] [place] [address], * Depression Screening (09/24/2023) Pathologist [facility] Depression Screening abstracted Historical Provider HEALTH MAINTENANCE Final Result * Colonoscopy (06/17/2015) Pathologist [facility] Colonoscopy no interpretation , abstracted Anatomical Region Laterality Modality Other Historical Provider HEALTH MAINTENANCE Final Result * Hepatitis C Screening (02/06/2009) Pathologist [facility] Hepatitis C Screening abstracted us Historical Provider HEALTH MAINTENANCE Final Result * Abdominal Aortic Aneurysm Screen (12/13/2008) Abdominal Aortic Aneurysm (AAA) Screening abstracted Anatomical Region Laterality Modality Other us Historical Provider HEALTH MAINTENANCE Final Result from Last 3 Months or Most Recently Relevant to Health Maintenance Insurance [employer] [place] [employer] Care Teams [facility] Relationship Specialty Start Date End Date Olvin Rocha MD [address] [place] [phone] PCP - General Internal Medicine 08/18/17
--- OUTSIDE RECORDS SUMMARY | 2024-12-07 11:40 | XMS_ITS | Encounter Summary ---
Author Organization [facility] Address [address] [place] [address] Care Team Providers Care Collision Repairer Name Role Phone Olvin Rocha MD Primary Care Provider [phone] [phone] Reason for Visit * Reason Comments E-prescribe Rx Request Encounter Details Date Type Department Care Team Description 02/06/2021 Refill Adult Medicine [address] [address] Olvin Rocha MD [address] [place] [address] E-prescribe Rx Request Social History Tobacco Use Types Packs/Day Years [...] often do you attend chur ch or mormonism services? Never 09/24/2023 Do you belong to any clubs o r organizations such as anabaptist groups, unions, fraternal or athletic groups, or [...] place to sleep or slept in a nursing home (including now)? No 09/24/2023 Sex Assigned at Date Recorded Male 06/27/2024 7:[address] Job Start Date Occupation Industry Not on file Not on file Not on file documented as of this encounter Miscellaneous Notes * Telephone Encounter - Vida Pisano C.M.A. - 02/06/2021 3:16 PM EDT Rx was signed and Faxed to pharmacy electronically. My chart message sent to patient today BSR - please schedule appointment for patient for med review within 3 mo from 02/06/2021, when pt calls back. Thank you. * Telephone Encounter - Katy Paredes NP - 02/06/2021 1:41 PM EDT Rx sent. Please schedule for offiec visit within 3 months - no further refills until seen * Telephone Encounter - Tonja Martinez M.A. - 02/06/2021 1:31 PM EDT Date of last office visit was 08/16/20 Lab Results Component Value Date NA 143 05/27/2020 K 5.0 05/27/2020 CO2 29 05/27/2020 CL 110 05/27/2020 BUN 12 05/27/2020 CREAT 1.05 05/27/2020 GLU 95 05/27/2020 CA 9.6 05/27/2020 GFR > 60 05/27/2020 Lab Results Component Value Date CHOL 151 05/27/2020 LDL 91 05/27/2020 HDL 39 05/27/2020 TRIG 108 05/27/2020 SGOT 18 05/27/2020 SGPT 36 05/27/2020 \ * Telephone Encounter - Rosalie Carson - 02/06/2021 10:59 AM EDT Patient would like script to be: E-PRESCRIBED/FAXED TO PHARMACY WHEN WAS THE PATIENT'S LAST APPOINTMENT IN ADULT MEDICINE? 08/16/20 WHEN WAS THE LAST TIME THE PATIENT SAW THEIR PCP? Same as above Does patient have an upcoming appointment? Patient was sent a My Chart request to set up an appointment as they are due. (THE MEDICATION REQUESTED IS ON THE MED LIST ABOVE) All of the medications requested were on the CURRENT MEDS list Did you check the Pharmacy information above?: YES Patient wants: 30 -day supply Is this a mail order prescription request ? NO If the refill is from a FAXED refill request what is the RX # listed on the fax? N/A Patients current insurance carrier is: [place] / [place] / Product Type: MEDICARE [id number] documented in this encounter Plan of Treatment Not on file documented as of this encounter Visit Diagnoses Diagnosis Hyperlipidemia, unspecified hyperlipidemia type HYPERTENSION Essential hypertension, benign documented in this encounter Care Teams Collision Repairer Relationship Specialty Start Date End Date Olvin Rocha MD [address] [place] [phone] PCP - General Internal Medicine 08/18/17 documented as of this encounter
--- OUTSIDE RECORDS SUMMARY | 2024-12-07 11:40 | XMS_ITS | Encounter Summary ---
Author Organization [facility] Address [address] [place] [address] Care Team Providers Care Manufacturing Engineer Assembly Name Role Phone Sergio Church MD Primary Care Provider [facility] Olvin Rocha MD Primary Care Provider [phone] [phone] Reason for Visit * Reason Comments E-prescribe Rx Request Encounter Details Date Type Department Care Team Description 03/30/2017 Refill Adult Medicine [facility] [address] [place] [address] Sergio Church MD E-prescribe Rx Request Social History Tobacco Use [...] often do you attend chur ch or moravian services? Never 09/24/2023 Do you belong to any clubs o r organizations such as cheondoism groups, unions, fraternal or athletic groups, or [...] place to sleep or slept in a fdc (including now)? No 09/24/2023 Sex Assigned at Date Recorded Male 06/27/2024 7:[address] Job Start Date Occupation Industry Not on file Not on file Not on file documented as of this encounter Miscellaneous Notes * Telephone Encounter - Kay Arthur - 03/30/2017 4:59 PM EDT Lab Results Component Value Date NA 142 09/23/2015 K 4.4 09/23/2015 CO2 27.8 09/23/2015 CL 102 09/23/2015 BUN 17 09/23/2015 CREAT 1.0 09/23/2015 GLU 119 09/23/2015 CA 9.4 09/23/2015 GFR > 60 09/23/2015 Last visit 11/02/16 for a PE * Telephone Encounter - Matthew Bob - 03/30/2017 4:13 PM EDT Patient would like script to be: E-PRESCRIBED/FAXED TO PHARMACY WHEN WAS THE PATIENT'S LAST APPOINTMENT IN ADULT MEDICINE? 11/02/16 WHEN WAS THE LAST TIME THE PATIENT SAW THEIR PCP? 09/23/15 Does patient have an upcoming appointment? No-patient refused appointment, will call back to book appointment (THE MEDICATION REQUESTED IS ON THE MED LIST ABOVE) All of the medications requested were on the CURRENT MEDS list Did you check the Pharmacy information above?: YES Patient wants: 90 -day supply Is this a mail order prescription request ? NO Patients current insurance carrier is: Payor: [employer] / Plan: [employer] $20 [place] / Product Type: SendoriO [id number] documented in this encounter Plan of Treatment Not on file documented as of this encounter Visit Diagnoses Not on filedocumented in this encounter Care Teams Manufacturing Engineer Assembly Relationship Specialty Start Date End Date Sergio Church MD PCP - General Internal Medicine 10/14/11 08/17/17 Olvin Rocha MD [address] [place] [address] PCP - General Internal Medicine 08/18/17 documented as of this encounter
--- OUTSIDE RECORDS SUMMARY | 2024-12-07 11:40 | XMS_ITS | Encounter Summary ---
Author Organization [facility] Address [address] [place] [address] Care Team Providers Care Key Sander Name Role Phone Olvin Rocha MD Primary Care Provider +1 [phone] Reason for Visit * Reason Comments E-prescribe Rx Request Encounter Details Date Type Department Care Team Description 09/08/[address] [facility] [address] [place] [address] Girish Olivas, HODA [address] [place] [address] E-prescribe Rx Request Social History Tobacco Use [...] often do you attend chur ch or druze services? Never 09/24/2023 Do you belong to any clubs o r organizations such as episcopalian groups, unions, fraternal or athletic groups, or [...] place to sleep or slept in a usp (including now)? No 09/24/2023 Sex Assigned at Date Recorded Male 06/27/2024 7:[address] Job Start Date Occupation Industry Not on file Not on file Not on file documented as of this encounter Miscellaneous Notes * Telephone Encounter - Shadia Fox L.P.N. - 09/08/2021 4:23 PM EST Last appt: 02/20/21 Upcoming appt: 09/16/21 Lab Results Component Value Date CHOL 151 05/27/2020 LDL 91 05/27/2020 HDL 39 05/27/2020 TRIG 108 05/27/2020 * Telephone Encounter - Lora Ny - 09/08/2021 2:47 PM EST Patient would like script to be: E-PRESCRIBED/FAXED TO PHARMACY WHEN WAS THE PATIENT'S LAST APPOINTMENT IN ADULT MEDICINE? 02-20-21 WHEN WAS THE LAST TIME THE PATIENT SAW THEIR PCP? 02-01-21 Does patient have an upcoming appointment? Yes 09-16-21 (THE MEDICATION REQUESTED IS ON THE MED [...] / Plan[place] / Product Type: MEDICARE [id number] documented in this encounter Plan of Treatment Not on file documented as of this encounter Visit Diagnoses Diagnosis Hyperlipidemia, unspecified hyperlipidemia type documented in this encounter Care Teams Key Sander Relationship Specialty Start Date End Date Olvin Rocha MD [address] [place] [address] PCP - General Internal Medicine 08/18/17 documented as of this encounter
--- OUTSIDE RECORDS SUMMARY | 2024-12-07 11:40 | XMS_ITS | Encounter Summary ---
Author Organization [facility] Address [address] [place] [address] Care Team Providers Care Brakes Inspector Name Role Phone Sergio Church MD Primary Care Provider Unavail able Sergio Church MD Primary Care Provider Unavail Olvin Tomlinson MD Primary Care Provider +1 [phone] Encounter Details Date Type Department Care Team Description 09/09/2011 Credit Operations Specialist Report Medical Records [address] [place] [address] Yao Herrera Social History Tobacco Use Types Packs/Day Years Used Date Smoking Tobacco: Former Cigars Comments:smoker 20 yr ago Alcohol Use Standard Drinks/Week Comments Yes 0 (1 standard drink = 0.6 oz pur e alcohol) occ Alcohol Habits Answer Date Recorded How often [...] week 09/24/2023 How often do you attend [facility] or protestant services? Never 09/24/2023 Do you belong to any clubs o r organizations such as anabaptism groups, unions, fraternal or athletic groups, or [...] place to sleep or slept in a fci (including now)? No 09/24/2023 Sex Assigned at Date Recorded Male 06/27/2024 7:[address] Job Start Date Occupation Industry Not on file Not on file Not on file documented as of this encounter Plan of Treatment Not on file documented as of this encounter Visit Diagnoses Not on filedocumented in this encounter Care Teams Brakes Inspector Relationship Specialty Start Date End Date Sergio Church MD PCP - General 07/26/1991 10/13/11 Sergio Chruch MD PCP - General Internal Medicine 10/14/11 08/17/17 Olvin Rocha MD [address] [place] [address] PCP - General Internal Medicine 08/18/17 documented as of this encounter
--- OUTSIDE RECORDS SUMMARY | 2024-12-07 11:40 | XMS_ITS | Encounter Summary ---
Author Organization [facility] Address [address] [place] [address] Care Team Providers Care Elevator Troubleshooter Name Role Phone Olvin Rocha MD Primary Care Provider [phone] [phone] Reason for Visit * Reason Comments E-prescribe Rx Request Encounter Details Date Type Department Care Team Description 04/17/2024 Refill Adult Medicine [facility] [address] [place] [address] Katy Paredes, AGRICULTURAL SALES REPRESENTATIVE [address] [place] [address] E-prescribe Rx Request Social History Tobacco Use Types Packs/Day Years Used Date Smoking Tobacco: Former Cigarettes 0.5 5 1 970 - 1972 Cigars Smokeless Tobacco: Never Comments:smoker 20 yr ago Alcohol Use Standard Drinks/Week Comments Yes 0 (1 standard drink = 0.6 oz pur e alcohol) maybe 1-2 weekly very rarely Alcohol Habits Answer Date Recorded How often [...] often do you attend chur ch or rastafari services? Never 09/24/2023 Do you belong to any clubs o r organizations such as hoahaoism groups, unions, fraternal or athletic groups, or [...] place to sleep or slept in a senior care (including now)? No 09/24/2023 Sex Assigned at Date Recorded Male 06/27/2024 7:[address] Job Start Date Occupation Industry Not on file Not on file Not on file documented as of this encounter Miscellaneous Notes * Telephone Encounter - Hortensia Riley MA. - 04/18/2024 10:12 AM EDT Faxed to pharmacy * Telephone Encounter - Danelle Dang M.A. - 04/17/2024 11:16 AM EDT Kesha 11/09/23 Lab Results Component Value Date NA 142 03/17/2023 K 4.7 03/17/2023 CO2 27 03/17/2023 CL 110 03/17/2023 BUN 19 03/17/2023 CREAT 1.16 03/17/2023 GLU 96 03/17/2023 CA 8.8 03/17/2023 GFR 67 03/17/2023 Lab Results Component Value Date CHOL 152 03/17/2023 LDL 88 03/17/2023 HDL 38 03/17/2023 TRIG 132 03/17/2023 SGOT 23 03/17/2023 SGPT 45 03/17/2023 * Telephone Encounter - Kayla Harry - 04/17/2024 10:38 AM EDT Patient would like script to be: E-PRESCRIBED/FAXED TO PHARMACY WHEN WAS THE PATIENT'S LAST APPOINTMENT IN ADULT MEDICINE? 11/09/23 WHEN WAS THE LAST TIME THE PATIENT SAW THEIR PCP? Same as above Does patient have an upcoming appointment? No-unable to reach left [facility] to call for appointment due to refill request. Appt due 05/10/24 (THE MEDICATION REQUESTED IS ON THE MED [...] / Plan[place] / Product Type: MEDICARE [id number] documented in this encounter Plan of Treatment Not on file documented as of this encounter Visit Diagnoses Diagnosis Hyperlipidemia, unspecified hyperlipidemia type Anxiety associated with depression Dysthymic disorder documented in this encounter Care Teams Elevator Troubleshooter Relationship Specialty Start Date End Date Olvin Rocha MD [address] [place] [id number] PCP - General Internal Medicine 08/18/17 documented as of this encounter
--- OUTSIDE RECORDS SUMMARY | 2024-12-07 11:40 | XMS_ITS | Encounter Summary ---
Author Organization [facility] Address [address] [place] [address] Care Team Providers Care Form Coverer Name Role Phone Sergio Church MD Primary Care Provider [facility] Olvin Rocha MD Primary Care Provider [phone] [phone] Encounter Details Date Type Department Care Team Description 09/24/2015 BISQUE KILN DRAWER/[facility] Report Medical Records [address] [place] [address] Abstract, Provider Social History Tobacco Use Types [...] often do you attend chur ch or latter-day services? Never 09/24/2023 Do you belong to any clubs o r organizations such as mormonism groups, unions, fraternal or athletic groups, or [...] on filedocumented in this encounter Care Teams Form Coverer Relationship Specialty Start Date End Date Sergio Church MD PCP - General Internal Medicine 10/14/11 08/17/17 Olvin Rocha MD [address] [place] [address] PCP - General Internal Medicine 08/18/17 documented as of this encounter
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
--- OUTSIDE RECORDS SUMMARY | 2024-12-07 11:41 | XMS_ITS | Encounter Summary ---
Author Organization [facility] Address [address] [place] [address] Care Team Providers Care Residential Youth Counselor Name Role Phone Sergio Church MD Primary Care Provider [facility] Olvin Rocha MD Primary Care Provider +1 -[phone] Encounter Details Date Type Department Care Team Description 11/05/2014 DOT Physical Forms Medical Records [address] [place] [address] Abstract, Provider Social History Tobacco Use Types [...] week 09/24/2023 How often do you attend [facility] or religion services? Never 09/24/2023 Do you belong to any clubs o r organizations such as sabianist groups, unions, fraternal or athletic groups, or [...] on filedocumented in this encounter Care Teams Residential Youth Counselor Relationship Specialty Start Date End Date Sergio Church MD PCP - General Internal Medicine 10/14/11 08/17/17 Olvin Rocha MD [address] [place] [address] PCP - General Internal Medicine 08/18/17 documented as of this encounter
--- OUTSIDE RECORDS SUMMARY | 2024-12-07 11:41 | XMS_ITS | Encounter Summary ---
Author Organization [facility] Address [address] [place] [address] Care Team Providers Care Mogul Operator Name Role Phone Sergio Church MD Primary Care Provider [facility] Olvin Rcoha MD Primary Care Provider [phone] [phone] Encounter Details Date Type Department Care Team Description 10/27/2013 DOT Physical Forms Medical Records [address] [place] [address] Abstract, Provider Social History Tobacco Use Types [...] 09/24/2023 How often do you attend [facility] or synagogue services? Never 09/24/2023 Do you belong to any clubs o r organizations such as hindu groups, unions, fraternal or athletic groups, or [...] on filedocumented in this encounter Care Teams Mogul Operator Relationship Specialty Start Date End Date Sergio Church MD PCP - General Internal Medicine 10/14/11 08/17/17 Olvin Rocha MD [address] [place] [address] PCP - General Internal Medicine 08/18/17 documented as of this encounter
--- OUTSIDE RECORDS SUMMARY | 2024-12-07 11:41 | XMS_ITS | Encounter Summary ---
Author Organization [facility] Address [address] [place] [address] Care Team Providers Care Career Based Intervention Coordinator Name Role Phone Sergio Church MD Primary Care Provider [facility] Olvin Rocha MD Primary Care Provider +1 -[phone] Encounter Details Date Type Department Care Team Description 05/03/2014 Transfer Records Medical Records [address] [place] [address] Abstract, Provider Social History Tobacco Use Types [...] week 09/24/2023 How often do you attend [facility] or sabianist services? Never 09/24/2023 Do you belong to any clubs o r organizations such as judaism groups, unions, fraternal or athletic groups, or [...] on filedocumented in this encounter Care Teams Career Based Intervention Coordinator Relationship Specialty Start Date End Date Sergio Church MD PCP - General Internal Medicine 10/14/11 08/17/17 Olvin Rocha MD [address] [place] [address] PCP - General Internal Medicine 08/18/17 documented as of this encounter
--- OUTSIDE RECORDS SUMMARY | 2024-12-07 11:41 | XMS_ITS | Encounter Summary ---
Author Organization [facility] Address [address] [place] [address] Care Team Providers Care Camp Dining Room Attendant Name Role Phone Sergio Church MD Primary Care Provider Unavail able Sergio Church MD Primary Care Provider Unavail Olvin Tomlinson MD Primary Care Provider +1 -[phone] Encounter Details Date Type Department Care Team Description 04/29/2006 Hospital Medical Records [address] [place] [address] Colin Edmonds [address] [place] [address] Social History Tobacco Use Types Packs/Day Years [...] often do you attend chur ch or yarsanism services? Never 09/24/2023 Do you belong to any clubs o r organizations such as pentecostalism groups, unions, fraternal or athletic groups, or [...] on filedocumented in this encounter Care Teams Camp Dining Room Attendant Relationship Specialty Start Date End Date Sergio Church MD PCP - General 07/26/1991 10/13/11 Sergio Church MD PCP - General Internal Medicine 10/14/11 08/17/17 Olvin Rocha MD [address] [place] [address] PCP - General Internal Medicine 08/18/17 documented as of this encounter
--- OUTSIDE RECORDS SUMMARY | 2024-12-07 11:41 | XMS_ITS | Encounter Summary ---
Author Organization [facility] Address [address] [place] [address] Care Team Providers Care Chair Finisher Name Role Phone Sergio Church MD Primary Care Provider Unavail [facility] Olvin Rocha MD Primary Care Provider +1 -[phone] Encounter Details Date Type Department Care Team Description 04/24/2014 Release of Information Medical Records [address] [place] [address] Abstract, Provider Social History Tobacco Use Types [...] do you attend [facility] or latter day services? Never 09/24/2023 Do you belong to any clubs o r organizations such as congregation groups, unions, fraternal or athletic groups, or [...] place to sleep or slept in a half-way (including now)? No 09/24/2023 Sex Assigned at Date Recorded Male 06/27/2024 7:[address] Job Start Date Occupation Industry Not on file Not on file Not on file documented as of this encounter Plan of Treatment Not on file documented as of this encounter Visit Diagnoses Not on filedocumented in this encounter Care Teams Chair Finisher Relationship Specialty Start Date End Date Sergio Church MD PCP - General Internal Medicine 10/14/11 08/17/17 Olvin Rocha MD [address] [place] [address] PCP - General Internal Medicine 08/18/17 documented as of this encounter
--- OUTSIDE RECORDS SUMMARY | 2024-12-07 11:41 | XMS_ITS | Encounter Summary ---
Author Organization [facility] Address [address] [place] [address] Care Team Providers Care Institutional Cook Name Role Phone Olvin Rocha MD Primary Care Provider +1 [phone] Reason for Visit * Reason Comments E-prescribe Rx Request Encounter Details Date Type Department Care Team Description 11/14/2020 Refill Adult Medicine [address] [address] Olvin Rocha MD [address] [place] [address] E-prescribe Rx Request Social History Tobacco Use [...] often do you attend chur ch or mormon services? Never 09/24/2023 Do you belong to [...] Telephone Encounter - Tonja Martinez M.A. - 11/14/2020 5:20 PM EDT Date of last office visit was 08/16/20. Lab Results Component Value Date CHOL 151 05/27/2020 LDL 91 05/27/2020 HDL 39 05/27/2020 TRIG 108 05/27/2020 SGOT 18 05/27/2020 SGPT 36 05/27/2020 * Telephone Encounter - Kem Olivares - 11/14/2020 3:48 PM EDT Patient would like script to be: E-PRESCRIBED/FAXED TO PHARMACY WHEN WAS THE PATIENT'S LAST APPOINTMENT IN ADULT MEDICINE? 08/16/20 WHEN WAS THE LAST TIME THE PATIENT SAW THEIR PCP? Same as above Does patient have an upcoming appointment? no (THE MEDICATION REQUESTED IS ON THE MED [...] insurance carrier is: [place] / Plan: MED[place]-[employer] / Product Type: MEDICARE [id number] documented in this encounter Plan of Treatment Not on file documented as of this encounter Visit Diagnoses Diagnosis Hyperlipidemia, unspecified hyperlipidemia type documented in this encounter Care Teams Institutional Cook Relationship Specialty Start Date End Date Olvin Rocha MD [address] [place] [address] PCP - General Internal Medicine 08/18/17 documented as of this encounter
--- OUTSIDE RECORDS SUMMARY | 2024-12-07 11:41 | XMS_ITS | Encounter Summary ---
Author Organization [facility] Address [address] [place] [address] Care Team Providers Care Policy Writer Sales Name Role Phone Olvin Rocha MD Primary Care Provider [phone] [phone] Reason for Visit * Reason Comments E-prescribe Rx Request Encounter Details Date Type Department Care Team Description 12/05/[address] [facility] [address] [place] [address] Olvin Rocha MD [address] [place] [address] E-prescribe Rx Request Social History Tobacco Use [...] often do you attend chur ch or sabianist services? Never 09/24/2023 Do you belong to any clubs o r organizations such as hinduism groups, unions, fraternal or athletic groups, or [...] encounter Miscellaneous Notes * Telephone Encounter - Letty White M.A. - 12/05/2018 12:58 PM EDT Pt has scheduled physical exam for 02/01/19. Pt would like to keep this appointment for both med review and CPX. * Telephone Encounter - Olvin Rocha MD - 12/05/2018 12:37 PM EDT Needs appt * Telephone Encounter - Ca Crawford M.A. - 12/05/2018 11:17 AM EDT Last office visit 03/15/18 Lab Results Component Value Date CHOL 182 03/15/2018 LDL 82 03/15/2018 HDL 40 03/15/2018 TRIG 300 03/15/2018 SGOT 29 09/23/2015 SGPT 43 09/23/2015 * Telephone Encounter - Rosalie Carson - 12/05/2018 9:32 AM EDT Patient would like script to be: E-PRESCRIBED/FAXED TO PHARMACY WHEN WAS THE PATIENT'S LAST APPOINTMENT IN ADULT MEDICINE? 03/15/18 WHEN WAS THE LAST TIME THE PATIENT SAW THEIR PCP? 09/20/17 Does patient have an upcoming appointment? Yes 02/01/19 (THE MEDICATION REQUESTED IS ON THE MED [...] N/A Patients current insurance carrier is: Payor: [employer] / Plan: O $20 ALGOMA 1 / Product Type: HMO [id number] documented in this encounter Plan of Treatment Not on file documented as of this encounter Visit Diagnoses Diagnosis Hyperlipidemia, unspecified hyperlipidemia type documented in this encounter Care Teams Policy Writer Sales Relationship Specialty Start Date End Date Olvin Rocha MD [address] [place] [id number] PCP - General Internal Medicine 08/18/17 documented as of this encounter
--- OUTSIDE RECORDS SUMMARY | 2024-12-07 11:41 | XMS_ITS | Encounter Summary ---
Author Organization [facility] Address [address] [place] [address] Care Team Providers Care Grades 1 6 Tutor Name Role Phone Olvin Rocha MD Primary Care Provider [phone] Reason for Visit * Reason Comments E-prescribe Rx Request Encounter Details Date Type Department Care Team Description 11/11/2019 Refill Adult Medicine [facility] [address] [place] [address] Katy Paredes, EGG PRODUCER [address] [place] [address] E-prescribe Rx Request Social History Tobacco Use [...] often do you attend chur ch or anabaptist services? Never 09/24/2023 Do you belong to any clubs o r organizations such as zoroastrianism groups, unions, fraternal or athletic groups, or [...] Miscellaneous Notes * Telephone Encounter - Ca Crawford M.A. - 11/13/2019 5:54 PM EDT Last office visit 08/04/19 Lab Results Component Value Date NA 141 08/04/2019 K 4.5 08/04/2019 CO2 29 08/04/2019 CL 107 08/04/2019 BUN 12 08/04/2019 CREAT 0.97 08/04/2019 GLU 113 08/04/2019 CA 9.2 08/04/2019 GFR > 60 08/04/2019 Lab Results Component Value Date CHOL 146 02/01/2019 LDL 71 02/01/2019 HDL 45 02/01/2019 TRIG 151 02/01/2019 SGOT 29 09/23/2015 SGPT 43 09/23/2015 * Telephone Encounter - Herlinda Romero - 11/13/2019 1:37 PM EDT \Patient would like script to be: E-PRESCRIBED/FAXED TO PHARMACY WHEN WAS THE PATIENT'S LAST APPOINTMENT IN ADULT MEDICINE? 08/04/19 WHEN WAS THE LAST TIME THE PATIENT SAW THEIR PCP? Same as above Does patient have an upcoming appointment? Yes 02/02/20 (THE MEDICATION REQUESTED IS ON THE MED [...] N/A Patients current insurance carrier is: Payor: [employer] / Plan: [employer]O $20 [place]AK[place]OWN 1500 / Product Type: HMO [id number] documented in this encounter Plan of Treatment Not on file documented as of this encounter Visit Diagnoses Diagnosis HYPERTENSION Essential hypertension, benign Hyperlipidemia, unspecified hyperlipidemia type documented in this encounter Care Teams Grades 1 6 Tutor Relationship Specialty Start Date End Date Olvin Rocha MD [address] [place] [address] PCP - General Internal Medicine 08/18/17 documented as of this encounter
[2024-12-07 17:40] LABS: MANUAL DIFF FLAG NO
[2024-12-07 17:53] LABS: Basophils Absolute Auto 0.1 X10*3/uL (0.0-0.2); Basophils Percent Auto 1.4 % (0-2); Eosinophils Absolute Auto 0.2 X10*3/uL (0.0-0.4); Eosinophils Percent Auto 3.7 % (0-4); Hematocrit 48.2 % (42.0-52.0); Hemoglobin 16.1 g/dl (14.0-18.0); Imm Gran Abs Auto 0.01 X10*3/uL (0.00-0.03); Imm Gran Pct Auto 0.2 % (0.0-0.4); Lymphocytes Absolute Auto 1.6 X10*3/uL (1.2-4.9); Lymphocytes Percent Auto 30.7 % (20-40); Mean Corpuscular HGB Conc 33.4 g/dl (31.0-36.0); Mean Corpuscular Hemoglobin 30.3 pg (27.0-33.0); Mean Corpuscular Volume 90.8 fL (80.0-98.0); Mean Platelet Volume 11.4 fL (9.4-12.4); Monocytes Absolute Auto 0.5 X10*3/uL (0.1-1.2); Monocytes Percent Auto 9.8 % (2-11); Neutrophils Absolute Auto 2.8 x10*3/uL (2.0-8.3); Neutrophils Percent Auto 54.2 % (45-73); Platelet Count 171 X10*3/uL (160-400); Red Blood Count 5.31 X10*6/uL (4.60-5.80); Red Cell Distribution Width 12.9 % (11.0-16.0); White Blood Count 5.1 X10*3/uL (4.8-10.8)
[2024-12-07 18:16] LABS: Alanine Aminotransferase 39 U/L (0-40); Albumin Level 4.2 g/dL (3.5-5.0); Alkaline Phosphatase 53 U/L (39-117); Anion Gap 13 (12-20); Aspartate Amino Transferase 32 U/L (5-37); Bilirubin Total 0.7 mg/dL (0.0-1.0); Blood Urea Nitrogen 13 mg/dL (9-16); Calcium 9.6 mg/dL (8.4-10.2); Carbon Dioxide 26 mmol/L (22-29); Chloride 108 mmol/L (96-108); Estimated Glomerular Filt Rate > 60; Glucose Random 133 mg/dL (60-115); Potassium 4.3 mmol/L (3.3-5.1); Sodium 143 mmol/L (135-145); Total Protein 7.5 g/dL (6.5-8.0)
[2024-12-07 18:23] LABS: TSH reflex Free T4 1.74 uIU/mL (0.32-4.0)
[2024-12-07 18:36] LABS: Folate 8.7 ng/mL (> or = 4.0); Vitamin B12 439 pg/mL (200-900)
[2024-12-07 18:51] LABS: Erythrocyte Sedimentation Rate 9 MM/HR (0-15)
[2024-12-11 12:33] LABS: Vitamin D 25-OH, D2 <4 ng/mL; Vitamin D 25-OH, D3 29 ng/mL; Vitamin D 25-OH, Total 29 ng/mL (30-100)
== END 2024-12-07 09:27 | disposition home or self-care (01) ==
LOC: HO.HKASLDS 09:26
PROVIDERS: PCP Internal Medicine; Visit Provider Psychiatry & Neurology Neurology
DX: R06.83 Snoring (principal); G47.10 Hypersomnia, unspecified; F09 Unspecified mental disorder due to known physiological condition; Z91.85 Personal history of military service; Z77.111 Contact with and (suspected) exposure to water pollution
CPT/HCPCS: 36415; 80053; 82306; 82607; 82746; 84443; 85025; 85652; 99202

== ENCOUNTER → 2024-12-20 09:22 | Outpatient (BNV) | payer MEDICARE, OTHER, SELFPAY | PROVIDERS: PCP Internal Medicine; Visit Provider Radiology Diagnostic Radiology | DX: J34.89 Other specified disorders of nose and nasal sinuses (principal) | CPT/HCPCS: 70551 ==

== ENCOUNTER 2024-12-20 09:25 | Outpatient (REF) | payer MEDICARE, OTHER, SELFPAY ==
--- NOTE | ~2024-12-20 | MR_ITS ---
EXAMINATION: MR BRAIN WITHOUT CONTRAST CLINICAL INFORMATION: Unspecified mental disorder due to known physiological condition. COMPARISON: None available. TECHNIQUE: MRI of the brain was obtained using routine sequences without contrast. Exam performed on a 1.5 Faith Siemens high-field unit. FINDINGS: There is motion degradation on multiple pulsing sequences. This limits the sensitivity of the study. There is no diffusion restriction. There is no intracranial hemorrhage, acute infarction, mass effect, or edema. Ventricles, sulci, and cisterns are normal in size and configuration for patient age. No shift of midline. No abnormal hemosiderin deposition is identified. There are a few scattered punctate and minimally confluent foci of white matter T2 hyperintensity in the periventricular, subcortical, and hemispheric deep white matter. These foci are nonspecific but statistically most likely relate to mild small vessel ischemic changes. No distribution or morphology specific to demyelinating disease. Midline structures appear normally formed. The pituitary gland appears normal. Posterior fossa structures appear normal. Cerebellar tonsils are appropriately located. Major flow voids are preserved within the skull base. The globes and orbital contents demonstrate no abnormalities. Paranasal sinuses demonstrate mild to moderate mucosal thickening throughout the ethmoid and sphenoid sinuses. No air-fluid levels. Remainder of the paranasal sinuses are normally aerated. Nasal septum is midline without spur. The mastoids and tympanic cavities are normally aerated. Extracranial soft tissues demonstrate no abnormalities. No suspicious bone marrow changes are evident. Atlantoaxial joint is demonstrates mild degenerative changes. MR/MR head/brain wo con IMPRESSION: Motion degraded exam, limiting sensitivity of the study. 1. No evidence of intracranial hemorrhage, acute infarction, mass effect, or edema. 2. Mild changes of small vessel ischemia. 3. Mild to moderate mucosal disease in the ethmoid and sphenoid sinuses. Electronically signed by: Jam Hyde MD 12/20/2024 12:26 PM EDT
--- NOTE | ~2024-12-20 | XR_ITS ---
EXAMINATION: XR SCREENING FILM FOR MR HISTORY: PRE MRI ORBITS TO R/O FOREIGN BODY COMPARISON: There are no prior studies for comparison. FINDINGS: Three views of the orbits demonstrate no radiopaque foreign body. There may be fluid in the left maxillary sinus.. XR/XR pre mri screening IMPRESSION: 1. No radiopaque foreign body is identified. 2. Possible fluid in the left maxillary sinus. Electronically signed by: Julio Cesar Cesar MD 12/20/2024 09:49 AM EDT
--- OUTSIDE RECORDS SUMMARY | 2024-12-20 10:09 | XMS_ITS | Clinical Summary ---
Author Organization [address] Building Address [address] [place] [phone] Phone Care Team Providers Care Supply Chain Specialist Name Role Phone Olvin Rocha MD Primary Care Provider [phone] [phone] Allergies Active Allergy Reactions Criticality Noted Date [...] Continue atenolol. Urinary calculus 09/02/2005 Overview (06/30/2024): Muas Encounters Date Type Department Care Team Description 10/31/2024 10:45 AM EDT Evaluation [address] [address] Jacqui Pat, PT Gait abnormality (Primary Dx) 10/19/2024 9:00 AM EDT Office Visit Internal Medicine - [facility] [address] [facility] [place] [address] Olvin Rocha MD Forgetfulness (Primary Dx); Gait abnormality; Anxiety associated with depression; Hypertension, unspecified type; Ankle edema, bilateral; Screen for colon cancer from Last 3 Months Immunizations Name Administration Dates Next Due Influenza Quadravalent, MDCK , 0.5ml, with preservative (Flucelvax) 6mo and older 04/06/2017 Influenza trivalent, 0.5mL ( Fluad) 65yo and older 04/14/2022,05/13/2020,04/22/2018,04/15 Influenza trivalent, 0.5mL, preservative free (Fluarix; FluLaval; Fluzone) ages 6mo and older (Afluria) 3 years and older 05/08/2015,04/30/2010,06/07/2008,05/17,06/22/2006 Influenza, Unspecified 04/28/2023,04/23/2014 [facility] SARS-CoV-2 COVID -19, vector-nr, rS-Ad26, preservative free 10/08/2020 Modern SARS-CoV-2 COVID-19, mRNA, LNP-S, preservative free 05/11/2023,05/15/2022,05/18/2021 [...] HISTORICAL MOLE (REMOVAL OF) COLONOSCOPY 02/27 PROCEDURE: TN COLONOSCOPY STOMA DX INCLUDING COLLJ SPEC SPX; [...] 4:00 PM EDT Telemedicine Internal Medicine - [address] [phone] Olvin Rocha MD [address] [place] [address] 03/28/2025 8:30 AM EDT Office Visit Internal Medicine - [address] [phone] Olvin Rocha MD [address] [place] [address] Health Maintenance Due Date Last Done Comments [...] Procedure Name Priority Date/Time Associated Diagnosis Comments EXTERNAL CLINICAL LAB 12/13/2024 EXTERNAL CLINICAL LAB 12/12/2024 EXTERNAL CLINICAL LAB 12/08/2024 EXTERNAL CLINICAL LAB 12/08/2024 CBC WITH AUTO DIFFERENTIAL Routine 10/23/2024 8:44 [...] Recently Relevant to Health Maintenance Results * External clinical lab (12/13/2024) Only the most recent of4 resultswithin the time period is included. us Provider [facility] LAB BLOOD ORDERABLES Fin al Result * Prostate specific antigen screen (10/23/2024 8:44 AM EDT) PSA 0.71 0.00 - 4.00 ng/mL LAB CHEMISTRY METHOD 10/23/2024 2:27 PM EDT [facility] Blood Venous blood specimen / Unknown Venipuncture / Unknown 10/23/2024 8:44 AM EDT 10/23/2024 8:44 AM EDT Narrative [facility] - 10/23/2024 2:27 PM EDT The Siemens Advia Centaur Chemiluminescent Immunoassay is used. Results obtained with different assay methods or kits cannot be used interchangeably. Results cannot be interpreted as absolute evidence of the presence or absence of malignant disease. us Olvin Rocha MD LAB BLOOD ORDERABLES Elizabeth gusman Result [facility] [address] [place] [address], [place] [phone] * (ABNORMAL) Lipid panel with reflex to direct LDL (10/23/2024 8:44 AM EDT) Cholesterol 191 0 - 200 mg/dL LAB CHEMISTRY METHOD 10/23/2024 1:51 PM EDT [facility] Triglycerides 116 0 - 150 mg/dL LAB CHEMISTRY METHOD 10/23/2024 1:51 PM EDT [facility] HDL 43 >=40 mg/dL LAB CHEMISTRY METHOD 10/23/2024 1:51 PM EDT [facility] LDL Calculated 125(H) 0 - 100 mg/dL LAB CHEMISTRY METHOD 10/23/2024 1:51 PM EDT [facility] VLDL Cholesterol Janes 23.2 mg/dL LAB CHEMISTRY METHOD 10/23/2024 1:51 PM EDT [facility] Non HDL Chol. (LDL+VLDL) 148(H) <145 mg/dL LAB CHEMISTRY METHOD 10/23/2024 1:51 PM EDT [facility] Chol/HDL Ratio 4.4 0.0 - 4.4 LAB CHEMISTRY METHOD 10/23/2024 1:51 PM T [facility] Blood Venous blood specimen / Unknown Venipuncture / Unknown 10/23/2024 8:44 AM EDT 10/23/2024 8:44 AM EDT us Olvin Rocha MD LAB BLOOD ORDERABLES Elizabeth naseem Result [facility] [address] [place] [address], [place] [phone] * (ABNORMAL) CBC auto differential (10/23/2024 8:44 AM EDT) WBC 5.2 4.8 - 10.8 K/mcL LAB HEMETOLOGY METHOD 10/23/2024 1:04 PM EDT [facility] RBC 5.20 4.50 - 5.50 M/mcL LAB HEMETOLOGY METHOD 10/23/2024 1:04 PM EDT [facility] Hemoglobin 16.2 13.5 - 17.5 g/dL LAB HEMETOLOGY METHOD 10/23/2024 1:04 PM EDT [facility] Hematocrit 48.5 42.0 - 54.0 % LAB HEMETOLOGY METHOD 10/23/2024 1:04 PM EDT [facility] MCV 92.7 79.0 - 98.0 FL LAB HEMETOLOGY METHOD 10/23/2024 1:04 PM EDT [facility] MCH 31.0 27.0 - 32.0 pcg LAB HEMETOLOGY METHOD 10/23/2024 1:04 PM EDT [facility] MCHC 33.4 32.0 - 37.0 g/dL LAB HEMETOLOGY METHOD 10/23/2024 1:04 PM EDT [facility] RDW 12.9 11.0 - 15.0 % LAB HEMETOLOGY METHOD 10/23/2024 1:04 PM EDT [facility] Platelets 158 130 - 400 K/mcL LAB HEMETOLOGY METHOD 10/23/2024 1:04 PM EDT [facility] MPV 11.2(H) 7.0 - 11.0 FL LAB HEMETOLOGY METHOD 10/23/2024 1:04 PM [facility] NRBC 0.0 <1.0 % LAB HEMETOLOGY METHOD 10/23/2024 1:04 PM [facility] NRBC Absolute 0.00 <0.10 K/mcL LAB HEMETOLOGY METHOD 10/23/2024 1:04 PM [facility] Neutrophils Relative 55.7 % LAB HEMETOLOGY METHOD 10/23/2024 1:04 PM [facility] Lymphocytes Relative 28.3 % LAB HEMETOLOGY METHOD 10/23/2024 1:04 PM [facility] Monocytes Relative 10.2 % LAB HEMETOLOGY METHOD 10/23/2024 1:04 PM [facility] Eosinophils Relative 4.2 % LAB HEMETOLOGY METHOD 10/23/2024 1:04 PM [facility] Basophils Relative 1.2 % LAB HEMETOLOGY METHOD 10/23/2024 1:04 PM [facility] Immature Granulocytes Relative 0.4 % LAB HEMETOLOGY METHOD 10/23/2024 1:04 PM [facility] Neutrophils Absolute 2.90 1.50 - 7.00 K/mcL LAB HEMETOLOGY METHOD 10/23/2024 1:04 PM [facility] Lymphocytes Absolute 1.47 1.00 - 5.00 K/mcL LAB HEMETOLOGY METHOD 10/23/2024 1:04 PM [facility] Monocytes Absolute 0.53 0.20 - 1.00 K/mcL LAB HEMETOLOGY METHOD 10/23/2024 1:04 PM [facility] Eosinophils Absolute 0.22 0.00 - 0.50 K/mcL LAB HEMETOLOGY METHOD 10/23/2024 1:04 PM [facility] Basophils Absolute 0.06 0.00 - 0.20 K/[facility] LAB HEMETOLOGY METHOD 10/23/2024 1:04 PM EDT [facility] Immature Granulocytes Absolute 0.02 0.00 - 0.03 /[facility] LAB HEMETOLOGY METHOD 10/23/2024 1:04 PM EDT [facility] Blood Venous blood specimen / Unknown Venipuncture / Unknown 10/23/2024 8:44 AM EDT 10/23/2024 8:44 AM EDT Olvin Rocha MD LAB BLOOD ORDERABLES Elizabeth l Result [facility] [address] [place] [address], [place] [phone] * B-type natriuretic peptide (10/23/2024 8:44 AM EDT) Pathologist [facility] BNP 83 <=100 pcg/mL LAB CHEMISTRY METHOD 10/23/2024 2:59 PM EDT [facility] Blood Venous blood specimen / Unknown Venipuncture / Unknown 10/23/2024 8:44 AM EDT 10/23/2024 8:44 AM EDT Olvin Rocha MD LAB BLOOD ORDERABLES Elizabeth l Result [facility] [address] [place] [address], [place] [phone] * Hemoglobin A1c (10/23/2024 8:44 AM EDT) Hemoglobin A1C 6.1 <6.5 % LAB CHEMISTRY METHOD 10/23/2024 2:13 PM EDT [facility] Mean Bld Glu Estim. 128 mg/dL LAB CHEMISTRY METHOD 10/23/2024 2:13 PM EDT [facility] Blood Venous blood specimen / Unknown Venipuncture / Unknown 10/23/2024 8:44 AM EDT 10/23/2024 8:44 AM EDT Olvin Rocha MD LAB BLOOD ORDERABLES Elizabeth naseem Result [facility] [address] [place] [address], * (ABNORMAL) Comprehensive metabolic panel (10/23/2024 8:44 AM EDT) Sodium 141 133 - 145 mmol/L LAB CHEMISTRY METHOD 10/23/2024 1:51 PM [facility] Potassium 4.4 3.5 - 5.5 mmol/L LAB CHEMISTRY METHOD 10/23/2024 1:51 PM [facility] Chloride 107 96 - 110 mmol/L LAB CHEMISTRY METHOD 10/23/2024 1:51 PM [facility] CO2 28 21 - 32 mmol/L LAB CHEMISTRY METHOD 10/23/2024 1:51 PM [facility] Anion Gap 6 3 - 11 LAB CHEMISTRY METHOD 10/23/2024 1:51 PM [facility] Glucose 119(H) 70 - 100 mg/dL LAB CHEMISTRY METHOD 10/23/2024 1:51 PM [facility] BUN 15 5 - 25 mg/dL LAB CHEMISTRY METHOD 10/23/2024 1:51 PM [facility] Creatinine 0.98 0.70 - 1.30 mg/dL LAB CHEMISTRY METHOD 10/23/2024 1:51 PM [facility] eGFR 81 >=60 mL/min/1. 73m2 LAB CHEMISTRY METHOD 10/23/2024 1:51 PM [facility] Comment:Calculation based on the??Chronic Kidney Disease Epidemiology Collaboration (CKD-EPI) equation refit??without adjustment for race. BUN/Creatinine Ratio 15.3 LAB CHEMISTRY METHOD 10/23/2024 1:51 PM T [facility] Calcium 9.3 8.5 - 10.5 mg/dL LAB CHEMISTRY METHOD 10/23/2024 1:51 PM [facility] AST (SGOT) 20 10 - 42 unit/L LAB CHEMISTRY METHOD 10/23/2024 1:51 PM [facility] ALT (SGPT) 34 10 - 60 unit/L LAB CHEMISTRY METHOD 10/23/2024 1:51 PM [facility] Alkaline Phosphatase 59 42 - 121 unit/L LAB CHEMISTRY METHOD 10/23/2024 1:51 PM [facility] Total Protein 7.4 6.0 - 8.0 g/dL LAB CHEMISTRY METHOD 10/23/2024 1:51 PM [facility] Albumin 3.7 3.2 - 5.0 g/dL LAB CHEMISTRY METHOD 10/23/2024 1:51 PM [facility] Total Bilirubin 0.8 0.0 - 1.4 mg/dL LAB CHEMISTRY METHOD 10/23/2024 1:51 PM [facility] Blood Venous blood specimen / Unknown Venipuncture / Unknown 10/23/2024 8:44 AM EDT 10/23/2024 8:44 AM EDT Olvin Rocha MD LAB BLOOD ORDERABLES Elizabeth l Result [facility] [address] [place] [address], * Depression Screening (09/24/2023) Depression Screening abstracted Historical Provider HEALTH MAINTENANCE Final Result * Colonoscopy (06/17/2015) Colonoscopy no interpretation , abstracted Anatomical Region Laterality Modality Other Historical Provider HEALTH MAINTENANCE Final Result * Hepatitis C Screening (02/06/2009) Hepatitis C Screening abstracted Historical Provider HEALTH MAINTENANCE Final Result * Abdominal Aortic Aneurysm Screen (12/13/2008) Abdominal Aortic Aneurysm (AAA) Screening abstracted Anatomical Region Laterality Modality Other Historical Provider HEALTH MAINTENANCE Final Result from Last 3 Months or Most Recently Relevant to Health Maintenance Insurance [employer] Care Teams Supply Chain Specialist Relationship Specialty Start Date End Date Olvin Rocha MD [address] [place] [phone] PCP - General Internal Medicine 08/18/17
== END 2024-12-20 09:26 | disposition home or self-care (01) ==
LOC: HO.MRI 09:25
PROVIDERS: PCP Internal Medicine; Visit Provider Psychiatry & Neurology Neurology
DX: R93.0 Abnormal findings on diagnostic imaging of skull and head, not elsewhere classified (principal); F09 Unspecified mental disorder due to known physiological condition
CPT/HCPCS: 70551

== ENCOUNTER → 2025-02-21 10:58 | Outpatient (REF) | payer MEDICARE, SELFPAY ==
--- OUTSIDE RECORDS SUMMARY | 2024-05-29 10:00 | XMS_ITS | Encounter Summary ---
Author Name [facility] [facility] [place] [facility] [place] Address [address] [place] [address] Care Team Providers Care Conformal Pad Former Name Role Phone CLIFFORD FERNANDES Primary Care Provider Unavailabl e Insurance Providers: All historical and current Section Date Range: From patient's date of to the date document was created. This section includes the names of all active insurance providers for the patient. Insurance Provider Type of Coverage Plan Name Start of Policy Coverage End of Policy Coverage Group Number Member ID Insurance Provider's Telephone Number Policy Nguyen's Name Patient's Relationship to Policy Nguyen ORLY BURROWS ([place]NR) [place] SPECIAL CLASS ORLY CUENCA May 13, 2023 CARLISLE STORMY [id number] UMBERTO GOMEZ PATIENT [facility] Jan 23, 2018 [id number] ANNA GOMEZ [facility] ([facility]) MEDICARE ADVANTAGE [facility] ([facility]) Jul 26, 2024 [id number] PATRICIATHE TOBY PATIENT MEDICARE ([facility]) MEDICARE () PART B Mar 26, 2020 PART B [id number] [phone] PATRICIATHE TOBY PATIENT MEDICARE ([facility]) MEDICARE (M) PART B Mar 26, 2020 PART B [id number] [phone] PATRICIATHE ODORE PATIENT MEDICARE (WNR) MEDICARE (M) PART A Oct 24, 2014 PART A [id number] [phone] PATRICIATHE ODORE PATIENT MEDICARE (WNR) MEDICARE (M) PART A Oct 24, 2014 PART A [id number] SHYANNE GOMEZ [place] PATIENT MEDICARE (WNR) MEDICARE (M) PART A Oct 24, 2014 PART A [id number] [phone] DUNCAN GOMEZE PATIENT Selected Encounter This section includes the information on record at [place] for the Encounter. Date/Time Encounter Type Encounter Description Reason Provider Source May 29, 2024 02:00 PM OFF/OP CNSLTJ NEW/EST LOW 30 PODIATRY ICD-10-CM L60.0 Ingrowing nail MELISSA MENDOZA DPM IH Encounter Template Text not used by [place] Assessments - Encounter Diagnoses This section includes the primary and secondary diagnoses documented for the Encounter. Date/Time Primary/Secondary Diagnosis Diagnosis Name Provider Source May 29, 2024 02:54 PM PRIMARY [facility] [place] [facility] May 29, 2024 02:54 PM SECONDARY M[facility] (current) use of anticoagulants [facility] Plan of Treatment: Future Appointments (+ 6 months) and Future Tests (+/- 45 days) The Plan of Treatment section includes future care activities for the patient from all [place] treatmentfacilities. This section includes future appointments and future orders which are active, pending or scheduled. Future Appointments This section includes appointments that were scheduled to occur 6 months from the date of the Encounter, up to a maximum of 20 appointments. The data comes from all [place] treatment facilities. Appointment Date/Time Appointment Type Appointme nt Facility Name Jul 03, 2024 02:00 PM AMBULATORY [facility] [place] [facility] Jul 07, 2024 11:00 AM [facility] Aug 01, 2024 10:30 AM AMBULATORY - NONE [place] Aug 01, 2024 11:00 AM AMBULATORY - NONE [place] Aug 16, 2024 01:15 PM AMBUL[facility]ORY - SURGERY [facility] Aug 21, 2024 10:00 AM AMBULATORY - NONE [place] Aug 21, 2024 10:30 AM AMBULATORY - NONE [place] Sep 04, 2024 09:30 AM AMBULATORY - [facility]HAB [facility]IN [facility] [place] [facility] Sep 18, 2024 09:30 AM AM[facility]ULAT[facility]INE [facility] [place] [facility] Oct 04, 2024 09:00 AM AMBULATORY - MEDICINE [facility] [place] [facility] Social History: Smoking Status (Most current) and Tobacco Use (All prior to encounter date) This section includes the most current, and the historical, smoking and tobacco- related health factors from the [place] facility where the Encounter took place. Current Smoking Status This section includes the most current smoking, or tobacco-related health factor, from the [place] facility where the Encounter took place. Date/Time Current Smoking Status Comment Facil ity Sep 27, 2023 09:30 AM VA-TOBACCO FORMER USER [place] [facility] [place] [facility] Tobacco Use History This section includes a history of the smoking, or tobacco-related health factors, that were collected on or before the date of the Encounter. The data comes from the [place] facility where the Encounter took place. Date/Time Smoking Status/Tobacco Use Comment F acility Sep 27, 2023 09:30 AM VA-TOBACCO QUIT 15 YRS OR MORE [facility] [place] [facility] Sep 25, 2022 10:00 AM VA-TOBACCO FORMER USER [facility] [place] [facility] Sep 25, 2022 10:00 AM VA-TOBACCO QUIT 15 YRS OR MORE [facility] [place] [facility] Sep 22, 2021 09:00 AM VA-TOBACCO FORMER USER [facility] [place] [facility] Sep 22, 2021 09:00 AM VA-TOBACCO QUIT 15 YRS OR MORE [facility] [place] [facility] Feb 03, 2019 09:23 AM VA-TOBACCO FORMER USER [facility] [place] [facility] Feb 03, 2019 09:23 AM VA-TOBACCO QUIT 15 YRS OR MORE [facility] [place] [facility] Mar 30, 2018 08:43 AM QUIT TOBACCO USE > 7 YEARS AGO [facility] [place] [facility] Sep 23, 2017 08:49 AM FORMER SMOKER - <1 00 LIFETIME CIGARETTES [facility] Mar 25, 2017 09:11 AM QUIT TOBACCO USE > 7 YEARS AGO [facility] Mar 25, 2016 01:49 PM QUIT TOBACCO USE > 7 YEARS AGO [facility] Feb 06, 2015 11:12 AM LIFETIME NON-TOBACCO USER [facility] Encounter Notes: All associated encounter notes This section contains the clinical notes associated to the Encounter. Date/Time Encounter Note(s) Provider Source May 29, 2024 02:08 PM PODIATRY CONSULT: LOCAL TITLE: CONSULT REPORT/PODIATRY STANDARD TITLE: PODIATRY CONSULT DATE OF NOTE: MAY 29, 2024@14:08 ENTRY DATE: MAY 29, 2024@14:08:38 AUTHOR: MELISSA MENDOZA DPM EXP COSIGNER: URGENCY: STATUS: COMPLETED CC: ingrown toenail HPI: The patient is a 73 year old MALE whom presents to the clinic c/o painful ingrown toenail of L big toe. Pt is on anticoagulant. Has ongoing issue w/ ingrown toenail of both big toes in the past 10 yrs. States he has been clipping and pulling the nail out. PMH: Reviewed Active problems - Computerized Problem List is the source for the followin. Exposure to potentially hazardous substance ([facility] [id number]) 2. Long-term current use of anticoagulant 3. Deep vein thrombosis 4. Environment contains chemical hazards 5. Left knee pain 6. Chronic sinusitis 7. GERD - Gastro-Esophageal Reflux Disease ([facility] [id number]) 8. Shared care - specialist and GP 9. Under care of multiple providers 10. Vertigo 11. Benign prostatic hypertrophy with outflow obstruction 12. Obesity 13. Gout 14. Generalized anxiety disorder 15. Impaired fasting glucose 16. Hearing loss 17. Benign essential hypertension 18. Hyperlipidemia 19. Allergic rhinitis 20. Anxiety PSH/HOSPITALIZATIONS: non-contributory MEDICATIONS: Active Outpatient Medications (including Supplies): Active Outpatient Medications Status ========= 1) APIXABAN 5MG TAB TAKE ONE-HALF TABLET BY MOUTH EVERY ACTIVE 12 HOURS FOR PREVENTION OF BLOOD CLOTS 2) BENZONATATE 200MG CAP TAKE ONE CAPSULE BY MOUTH THREE ACTIVE TIMES DAILY NEEDED FOR COUGH 3) CARBOXYMETHYLCELLULOSE NA 0.5% OPH SOLN INSTILL 1 ACTIVE DROP INTO EACH EYE FOUR TIMES DAILY NEEDED FOR DRY EYE 4) TRIAMCINOLONE ACETONIDE 0.5% CREAM APPLY A MODERATE ACTIVE AMOUNT TOPICALLY TWICE DAILY FOR ITCHING Active Non-VA Medications Status ========= 1) Non-VA ATENOLOL 50MG TAB 50MG BY MOUTH ONCE DAILY ACTIVE 2) Non-VA FLUOXETINE HCL 10MG CAP 10MG BY MOUTH ONCE ACTIVE DAILY 3) Non-VA IPRATROPIUM BR 0.03% NASAL SPRAY 2 SPRAYS INTO ACTIVE EACH NOSTRIL DAILY 4) Non-VA LOVASTATIN 10MG TAB 10MG BY MOUTH AT BEDTIME ACTIVE 5) Non-VA MULTIVITAMIN CHEWABLE TABLETS 1 TABLET BY ACTIVE MOUTH DAILY 9 Total Medications ALLERGIES: KEFLEX SH: Tobacco: denies Alcohol: social Exercise: play volleyball 2x/wk FH: non-contributory Pertinent ROS: as noted above Height 76 in [193.0 cm] (05/12/2024 09:23) Weight 275.5 lb [124.96 kg] (05/12/2024 09:23) BMI: 33.6 PHYSICAL EXAMINATION: VASC: DP/PT b/l difficult to palpate due to edema. DP/PT b/l are biphasic w/ a doppler. Skin temperature cool to warm from distal to proximal. + edema b/l feet. NEURO: Epicritic sensation grossly intact b/l. DERM: Skin TTT wnl. No open lesion or webspace maceration. Toenails [id number] b/l are elongated. Incurvated nail b/l borders of L hallux and medial border of R hallux w/ + pop, L>>R. There is mild local edema of L hallux, no erythema, no drainage, no soi. MSK: Muscle strength 5/5 for all 4 groups tested. ASSESSMENT: Onychocryptosis, collateral borders, L hallux Onychocryptosis, medial border, R hallux Long-term use of anticoagulant TREATMENT/PLAN: - Initial exam and evaluation. - Slant back procedure of offending nail border(s) of hallux b/l. - D/w pt surgical tx option for permanent nail removal of the offending nail borders. He will think about it. RTC: 3-4 mo I discussed the findings and plan with the patient. I educated the patient about the foot condition/issue. The patient verbalized understanding of the plan and education. I performed medication reconciliation within the scope of my practice. All medications related to Podiatry are up to date. /erica/ MELISSA MENDOZA DPM SOLUTION DESIGNER Signed: 05/29/2024 14:55 MELISSA MENDOZA DPM [facility]
--- OUTSIDE RECORDS SUMMARY | 2025-02-21 12:03 | XMS_ITS ---
Author Name [facility] Organization Unknown Care Team Organization Name Specialty Phone Email Start Date End Da te [facility] Olvin Rocha Primary Care 01/01/2023 03/13/2024 [facility] Girish Olivas Primary Care 08/03/202203/13
--- OUTSIDE RECORDS SUMMARY | 2025-02-21 12:03 | XMS_ITS | Encounter Summary ---
Author Organization [facility] Address [address] [place] [address] Care Team Providers Care Electric Motor Repairing Supervisor Name Role Phone Olvin Rocha MD Primary Care Provider [phone] [phone] Reason for Visit * Reason Onset Date Comments Faxed order 01/17/2025 [facility] Encounter Details Date Type Department Care Team (Late st Contact Info) Description 01/17/2025 [facility] [address] [place] [phone] Olvin Rocha MD [address] [place] [phone] Faxed order ([facility]) Social History Tobacco Use Types Packs/Day Years Used Date Smoking Tobacco: Former Cigarettes 0.5 2 0 07/26/1969 - 07/26/1971 Smokeless Tobacco: Never Alcohol Use Standard Drinks/Week Comments Yes 0 (1 standard drink = 0.6 oz pur e alcohol) Sex and Gender Information Value Date Recorded Sex Assigned at Not on file Legal Sex Male 6:44 AM EST Gender Identity Not on file Sexual Orientation Not on file documented as of this encounter Progress Notes * Brianne Koch - 01/17/2025 1:08 PM EDT faxed order from [facility] Placed in nurse's bin documented in this encounter Plan of Treatment Upcoming Encounters Date Type Department Care Team (Late st Contact Info) Description 03/28/2025 8:30 AM EDT Office Visit Internal Medicine - [address] [phone] Olvin Rocha MD [address] [place] [phone] documented as of this encounter Goals Goal Patient Goal Type Associated Problems [...] of gains made in skilled physical therapy documented as of this encounter Visit Diagnoses Not on filedocumented in this encounter Care Teams Electric Motor Repairing Supervisor Relationship Specialty Start Date End Date Olvin Rocha MD [address] [place] [phone] PCP - General Internal Medicine 08/18/17 documented as of this encounter
--- OUTSIDE RECORDS SUMMARY | 2025-02-21 12:04 | XMS_ITS | Encounter Summary ---
Author Organization [facility] Address [address] [place] [phone] Phone Care Team Providers Care Laborer Syrup Machine Name Role Phone Abhilash Isbell MD Primary Care Provider + Encounter Details Date Type Department Care Team (Late st Contact Info) Description 08/10/2023 [facility] [address] [place] [address] Social History Tobacco Use Types Packs/Day Years Used Date Smoking Tobacco: Never Assessed Education Answer Date Recorded Are you interested in more education? Not on sheyla e 01/19/2023 Are you concerned about learning? Not on file 01/19/2023 No 01/19/2023 No 01/19/2023 Digital Access Answer Date Recorded No 01/19/2023 No 01/19/2023 Reliable internet access at home? Not on file 01/19/2023 Device with a working camera? Not on file Intimate Partner Violence Answer Date R ecorded Are you denied basic needs s uch as food, clothing, or medical care? No 08/10/2023 In the past 12 months have y ou been in a relationship with a person who hurts, threatens, or tries to control you? No 08/10/2023 Are you denied basic needs s uch as food, clothing, or medical care? No 08/10/2023 In the past 12 months have y ou been in a relationship with a person who hurts, threatens, or tries to control you? No 08/10/2023 Sex and Gender Information Value Date Recorded Sex Assigned at Not on file Legal Sex Male 4:02 PM EDT Gender Identity Not on file Sexual Orientation Not on file documented as of this encounter Functional Status * Calculated C-SSRS Risk Score (Lifetime/Recent) Answer Date of Assessment Author No Risk Indicated 08/10/2023 3:41 PM Uzma King RN * [place] Suicide Severity Rating Scale (Screener/Recent Self-Report) Question Answer Date of Assessment Author 1. Wish to be (Past 1 Month) No 024 3:41 PM Uzma King RN 2. Non-Specific Active Suici morgan Thoughts (Past 1 Month) No 08/10/2023 3:41 PM Calderon King RN 6. Suicidal Behavior (Lifetime) No 4 3:41 PM Uzma King RN documented as of this encounter Plan of Treatment Not on file documented as of this encounter Visit Diagnoses Not on filedocumented in this encounter Additional Health Concerns Infection Onset Date Last Indicated Resolved Time CoV-Risk Comment:Neg covid pt has Flu and PE 08/10/2023 08/10/202307/26 6:56 AM EST Influenza A 08/10/2023 08/10/2023 08/17/2023 1:23 AM EST documented as of this encounter Care Teams Laborer Syrup Machine Relationship Specialty Start Date End Date Abhilash Isbell MD [address] [place] [phone] PCP - General Internal Medicine 01/20/23 documented as of this encounter Additional Source Comments The information contained in this document represents components of the legal health record. It is not the complete legal health record.[facility]
== END ==
LOC: HO.SL 10:58
PROVIDERS: PCP Internal Medicine; Visit Provider Psychiatry & Neurology Neurology
DX: G47.30 Sleep apnea, unspecified (principal); R06.83 Snoring; G47.10 Hypersomnia, unspecified
CPT/HCPCS: 95806

== ENCOUNTER → 2025-02-21 11:27 | Outpatient (BNV) | payer MEDICARE, SELFPAY | PROVIDERS: PCP Internal Medicine; Visit Provider Psychiatry & Neurology Neurology | DX: G47.10 Hypersomnia, unspecified (principal); R06.83 Snoring | CPT/HCPCS: 95806 ==

== ENCOUNTER → 2025-04-04 11:00 | Outpatient (BNV) | payer MEDICARE, SELFPAY | PROVIDERS: PCP Internal Medicine; Visit Provider Psychiatry & Neurology Neurology | DX: F99 Mental disorder, not otherwise specified (principal) | CPT/HCPCS: 95816 ==

== ENCOUNTER 2025-04-04 11:02 | Outpatient (REF) | payer MEDICARE, SELFPAY ==
--- NOTE | 2025-04-04 | EEG_ITS ---
Reason: unspecified mental d/o, r/o sz Medications: lorazepam, eliquis, atenolol, fluoxetine, lovastatin History: anxiety, HLD, DVT with PE - Patient reports memory not as sharp as it use to be, forgetting things daily. Patient also reports bouts of anxiety and gets very shaky all over and can't function. Occasional Babysitter Comments Photic Stimulation: completed Hyperventilation: omitted Behavioral state: cooperative State of consciousness: awake and drowsy Skull defect: none Sedation: none Handedness: rt Duration of study: 22 mins 11 secs Description: Waking background activity consists of a 10 hertz posterior alpha frequency intermixed with low-voltage fast frequencies anteriorly. Photic stimulation is without activation. Hyperventilation was omitted. No focal, lateralizing or paroxysmal discharges seen. Impression: this waking EEG is within normal limits MTDD
--- OUTSIDE RECORDS SUMMARY | 2025-04-04 14:06 | XMS_ITS | Clinical Summary ---
Author Organization [facility] Address [address] [place] [phone] Phone Care Team Providers Care Pipe Assembly Worker Name Role Phone Abhilash Isbell MD Primary Care Provider + Allergies Active Allergy Reactions Criticality Noted Date Comments Cephalexin 01/19/2023 Medications atenolol (TENORMIN) 50 mg tablet Take 50 mg by mouth daily. Active azelastine (ASTELIN) 137 mcg (0.1 %) nasal spray 1 spray by Nasal route 2 (two) times a day. 10/28/2022 Active FLUoxetine (PROZAC) 10 MG capsule Take 10 mg by mouth daily. Active lovastatin (MEVACOR) 20 MG tablet Take 20 mg by mouth nightly at bedtime. Active apixaban (ELIQUIS) 5 mg (74 tabs) tablets in DVT/PE starter pack Take by mouth as directed. Take 10mg by mouth twice daily for 7 days followed by 5mg twice daily. 74 tablet 08/12/2023 Active Active Problems Problem Noted Date Diagnosed Date Right leg pain 08/10/2023 Bilateral pulmonary embolism 08/10/2023 Assessment & Plan (08/11/2023 4:11 PM EST): -US of the right lower extremity revealed DVT of the right lower extremity extending from the junction of the proximal and mid femoral vein up to the level of the popliteal vein. -CT PE revealed multiple bilateral segmental and subsegmental pulmonary embolism with CT evidence of right heart strain. No evidence of pulmonary infarct. -Has had prior DVT in the left lower extremity, completed 90-day treatment with Eliquis and has subsequently discontinued at that time -Troponin, BNP performed the ER which were negative and unremarkable, ICU was consulted given evidence of right heart strain recommended continued anticoagulation with Eliquis and possible echocardiogram. Echocardiogram reveals normal RV size and function. Normal LV size and function with EF of 64%. C/o pain and difficulty walking. Reports that his son has DVT and is on Eliquis indefinitely and that his mother had strokes. Plan: Continue apixaban 10 mg twice daily for 7 days, subsequently 5 mg twice daily for life -Unclear etiology of blood clot, has had yearly cancer screenings, recommend outpatient follow-up with hematology oncology of hypercoagulability disorder. -Patient now with his second DVT with associated PE. Will likely need anticoagulation indefinitely. -Continue low risk telemetry monitoring overnight with plans for DC home in a.m. if he remains stable. Influenza A 08/10/2023 Assessment & Plan (08/11/2023 4:11 PM EST): -Patient has been symptomatic for approximately 3 weeks, however states he is continues having chills and sweats -Influenza A test positive in the ER. Started on Tamiflu now day #2. possibility patient is immunocompromised given his prior history of chronic sinusitis and rhinitis Plan: -Continue Tamiflu for total 5 days - Supportive care Social History Tobacco Use Types Packs/Day Years [...] on file Sexual Orientation Not on file Last Filed Vital Signs Vital Sign Reading Time Taken Comments Blood Pressure 131/78 08/12/2023 8:18 AM EST Pulse 63 08/12/2023 8:18 AM EST Temperature 36.6 C (97.8 F) 08/12/2023 8:18 AM EST Respiratory Rate 18 08/12/2023 8:18 AM EST Oxygen Saturation 95% 08/12/2023 8:18 AM EST Inhaled Oxygen Concentration - - Weight 118 kg (260 lb 3.2 oz) 08/10/2023 10:42 P M EST Height 193 cm (6' 4 ) 08/10/2023 10:42 PM EST Body Mass Index 31.67 08/10/2023 10:42 PM EST Plan of Treatment Health Maintenance Due Date Last Done Comments LIPID PANEL 1949 DEPRESSION SCREENING 1961 SMOKING Hx and SMOKELESS TOBACCO SCREENING 1962 HEPATITIS C SCREENING 10/31/1967 COLOGUARD 1994 COLONOSCOPY 1994 COLORECTAL CANCER SCREENING 1994 FIT TEST 1994 FOBT 1994 SIGMOIDOSCOPY 1994 VIRTUAL COLONOSCOPY 1994 PNEUMOCOCCAL VACCINES (50+ years) (1 of 1 - PCV) 10/31/1999 ZOSTER VACCINES (1 of 2) 10/31/1999 CREATININE LEVEL 08/12/2024 08/12/2023, , 08/10/2023, Additional history exists RSV VACCINE (1 - 1-dose 75+ series) 2024 INFLUENZA VACCINE (#1) 2025 05/15/2022, 2020 COVID-19 VACCINE ( - 2023- season) 2025 Adult Td,Tdap Booster 09/22/2026 09/22/2016 , 10/10/2011, 11/25/2010 HEPATITIS A VACCINES Aged Out No long er eligible based on patient's age to complete this topic HIB VACCINES Aged Out No longer eligi ble based on patient's age to complete this topic MENINGOCOCCAL VACCINES (ACWY) Aged Out No longer eligible based on patient's age to complete this topic MENINGOCOCCAL VACCINES (B) Aged Out N o longer eligible based on patient's age to complete this topic Medical Devices Not on file Procedures Procedure Name Priority Date/Time Associated Diagnosis Comments BASIC METABOLIC PANEL Routine 08/12/2023 5:55 AM EST from Last 3 Months or Most Recently Relevant to Health Maintenance Results * (ABNORMAL) Basic metabolic panel (08/12/2023 5:55 AM EST) SODIUM 138 133 - 146 mmol/L [facility] CHLORIDE 103 96 - 108 mmol/L [facility] POTASSIUM 4.3 3.3 - 5.1 mmol/L [facility] CO2 26 21 - 35 mmol/L [facility] BUN 16 6 - 19 mg/dL [facility] CREATININE 1.10 0.5 - 1.5 mg/dL [facility] GLUCOSE 120(H) 70 - 99 mg/dL [facility] CALCIUM 9.4 8.4 - 10.3 mg/dL [facility] EGFR 71 >59 mL/min/1.7 3m2 [facility] Comment:Estimated glomerular filtration rate calculated using the CKD-EPI refit equation. ANION GAP 13 10 - 20 mmol/L [facility] Blood 08/12/2023 5:55 AM EST 08/12/2023 6:17 AM EST us Vianney Suero MD LAB BLOOD ORDERABLES Final Resu lt [facility] [address] [place], [place] [id number] from Last 3 Months or Most Recently Relevant to Health Maintenance Insurance [facility] [employer] MEDIC[employer] SUPPLEMENT MEDICARE PART A & [place] [address] [address] [employer]IC[employer] SUPPLEMENT MEDICARE PART A & [place] [address] [address] [facility] MEDICARE SUPPLEMENT MEDICARE PART A & B [facility] MEDICARE [facility] MEDICARE PART A & B [facility] [employer] [place] MEDIC[employer] SUPPLEMENT MEDICARE PART A & [place] [address] [employer] [place] SUPPLEMENT MEDICARE PART A & B [facility] D[facility] Advance Directives For more information, please contact: [phone] (9AM - 5PM [facility], Wednesday-Wednesday) * Full Code (Latest Code Status on File) Date Activated Date Inactivated Comments 08/10/2023 10:13 PM Question Answer Comments Code Status Confirmed With: Patient Code Status Communicated To: Inpatient Attending Care Teams Pipe Assembly Worker Relationship Specialty Start Date End Date Abhilash Isbell MD [address] [place] [phone] PCP - General Internal Medicine 01/20/23 Additional Source Comments The information contained in this document represents components of the legal health record. It is not the complete legal health record.[facility]
--- OUTSIDE RECORDS SUMMARY | 2025-04-04 14:06 | XMS_ITS | Clinical Summary ---
Author Organization [address] Building Address [address] [place] [phone] Phone Care Team Providers Care Geologist Name Role Phone Olvin Rocha MD Primary Care Provider [phone] Allergies Active Allergy Reactions Criticality Noted Date [...] 2 (two) times a day. 4 Active lovastatin (MEVACOR) 20 mg tablet Take 2 tablets (40 mg total) by mouth at bedtime. at bedtime 180 tablet 1 5 Active FLUoxetine (PROzac) 40 mg capsule Take 1 capsule (40 mg total) by mouth 1 (one) time each day. 90 each 1 5 Active atenoloL (TENORMIN) 50 mg tablet TAKE ONE TABLET BY MOUTH EVERY DAY 90 tablet 1 5 Active Active Problems Problem Noted Date Diagnosed Date GERD (gastroesophageal reflux disease) 12/06/202 4 Bilateral pulmonary embolism (CMS/HCC V24, CMS/H CC [...] Dysplastic nevus 2009 Overview (06/30/2024): Dysplastic nevus 3/10 chest (moderate atypia) Fatty liver 02/07/2009 Gout [...] Encounters Date Type Department Care Team Description 03/28/2025 12:30 PM EDT Office Visit [facility] [address] [facility] [place] [address] Girish Olivas NP Adult general medical exam (Primary Dx); Fatty liver; Hypertension, unspecified type; Overweight; Prediabetes; Prostate cancer screening; Swelling 01/17/[address] [place] [phone] Olvin Rocha MD 01/17/[address] [phone] Olvin Rocha MD 01/16/[address] [address] Olvin Rocha MD 01/15/[address] [address] Olvin Rocha MD 01/10/2025 4:30 PM EDT [facility] Internal [address] [address] Olvin Rocha MD Anxiety (Primary Dx) from Last 3 Months Immunizations Name Administration Dates Next Due Influenza Quadravalent, MDCK , 0.5ml, with preservative (Flucelvax) 6mo and older 04/06/2017 Influenza trivalent, 0.5mL ( Fluad) 65yo and older 04/14/2022,05/13/2020,04/22/2018,04/15 Influenza trivalent, 0.5mL, preservative free (Fluarix; FluLaval; Fluzone) ages 6mo and older (Afluria) 3 years and older 05/08/2015,04/30/2010,06/07/2008,05/17,06/22/2006 Influenza, Unspecified 04/28/2023,04/23/2014 RAO/Tim SARS-CoV-2 COVID -19, vector-nr, rS-Ad26, preservative free [...] Sign Reading Time Taken Comments Blood Pressure 139/78 03/28/2025 12:29 PM EDT Pulse 57 03/28/2025 12:29 PM EDT Temperature - - Respiratory Rate - - Oxygen Saturation - - Inhaled Oxygen Concentration - - Weight 124 kg (272 lb 4.8 oz) 03/28/2025 12:29 P M EDT Height 193 cm (6' 4 ) 03/28/2025 12:29 PM EDT Body Mass Index 33.15 03/28/2025 12:29 PM EDT Plan of Treatment Health Maintenance Due Date Last Done Comments Falls Risk Assessment 07/04/2022 Social Influencers of Health Screening 07/04/2022 Depression Screening 07/26/2024 09/24/2023 Medicare Annual Wellness Visit 09/23/2024 09/24/2023 COVID-19 Vaccine ( season) 2025 05/12/2024, 05/11/2023, 05/15/2022, Additional history exists Influenza Vaccine (#1) 2025 , 05/11/2023, 04/28/2023, Additional history exists Colorectal Cancer Screening: Colonoscopy 06/17/2025 06/17/2015, 06/17/2015 Hypertension/CHF/CAD Annual BMP Blood Test 03/28/2026 03/28/2025, 10/23/2024, 08/11/2023, Additional history exists Cholesterol Screening (Lipid Panel) 03/28/2030 03/28/2025, 10/23/2024, 03/17/2023 DTaP,Tdap,and Td Vaccines (8 - Td or Tdap) 01/19/2033 01/19/2023, 03/17/2022, 09/22/2016, Additional history exists Abdominal Aortic Aneurysm (AAA) Screen Completed 12/13/2008 Hepatitis C Screening Completed 02/06/2009 Pneumococcal Vaccine: 50+ Years Completed 09/22/2016, 07/31/2015 Zoster Vaccines Completed 09/12/2020, 06/25, 04/14/2015 RSV Immunization Adult Patients Completed 09/27/2023 HIB Vaccines Aged Out No longer eligi [...] Procedure Name Priority Date/Time Associated Diagnosis Comments BILIRUBIN DUPLICATE PROCEDURE TO ORDER Routine 03/28/2025 1:12 PM EDT Hyperlipidemia, unspecified hyperlipidemia type CBC WITH AUTO DIFFERENTIAL Routine 03/28/2025 1:12 PM EDT Hypertension, unspecified type COMPREHENSIVE METABOLIC PANEL Routine 03/28/2025 1:12 PM EDT Adult general medical exam LIPID PANEL WITH REFLEX TO DIRECT LDL Routine 03/28/2025 1:12 PM EDT Adult general medical exam HEMOGLOBIN A1C Routine 03/28/2025 1:12 PM EDT Prediabetes CBC AND DIFFERENTIAL Routine 03/28/2025 1:12 PM EDT Hypertension, unspecified type B-TYPE NATRIURETIC PEPTIDE Routine 03/28/2025 1:12 PM EDT Swelling HM DEPRESSION SCREENING Routine 09/24/2023 COLONOSCOPY Routine 06/17/2015 HEPATITIS C SCREENING Routine 02/06/2009 ABDOMINAL AORTIC ANEURYSM SCRREN Routine 12/13/2008 from Last 3 Months or Most Recently Relevant to Health Maintenance Results * Bilirubin duplicate procedure to order (03/28/2025 1:12 PM EDT) Total Bilirubin 0.9 0.0 - 1.4 mg/dL LAB CHEMISTRY METHOD 03/28/2025 3:56 PM EDT [facility] Bilirubin, Direct 0.3 0.0 - 0.3 mg/dL LAB CHEMISTRY METHOD 03/28/2025 3:56 PM EDT [facility] Bilirubin, Indirect 0.6 0.0 - 1.1 mg/dL LAB CHEMISTRY METHOD 03/28/2025 3:56 PM EDT [facility] Blood Venous blood specimen / Unknown Venipuncture / Unknown 03/28/2025 1:12 PM EDT 03/28/2025 1:12 PM EDT us Olvin Rocha MD LAB BLOOD ORDERABLES Elizabeth l Result [facility] [address] [place] [address], [place] [phone] * Lipid panel with reflex to direct LDL (03/28/2025 1:12 PM EDT) Cholesterol 155 0 - 200 mg/dL LAB CHEMISTRY METHOD 03/28/2025 3:56 PM EDT [facility] Triglycerides 99 0 - 150 mg/dL LAB CHEMISTRY METHOD 03/28/2025 3:56 PM EDT [facility] HDL 46 >=40 mg/dL LAB CHEMISTRY METHOD 03/28/2025 3:56 PM EDT [facility] LDL Calculated 89 0 - 100 mg/dL LAB CHEMISTRY METHOD 03/28/2025 3:56 PM EDT [facility] Comment:Estimated LDL Calcul ated using equation: Total cholesterol - HDL cholesterol - (Triglycerides/5) VLDL Cholesterol Janes 19.8 mg/dL LAB CHEMISTRY METHOD 03/28/2025 3:56 PM EDT [facility] Non HDL Chol. (LDL+VLDL) 109 <145 mg/dL LAB CHEMISTRY METHOD 03/28/2025 3:56 PM EDT [facility] Chol/HDL Ratio 3.4 0.0 - 4.4 LAB CHEMISTRY METHOD 03/28/2025 3:56 PM EDT [facility] Blood Venous blood specimen / Unknown Venipuncture / Unknown 03/28/2025 1:12 PM EDT 03/28/2025 1:12 PM EDT Girish Olivas NP LAB BLOOD ORDERABLES Final Res ult [facility] [address] [place] [address], [place] [phone] * (ABNORMAL) CBC auto differential (03/28/2025 1:12 PM EDT) [facility] WBC 5.2 4.8 - 10.8 K/mcL LAB HEMETOLOGY METHOD 03/28/2025 3:22 PM EDT [facility] RBC 5.30 4.50 - 5.50 M/mcL LAB HEM[facility]OLOGY [facility] Hemoglobin 15.8 13.5 - 17.5 g/dL LAB HEMETOLOGY METHOD 03/28[facility]2025 [facility] Hematocrit 48.5 42.0 - 54.0 % LAB HEMETOLOGY METHOD 03/28/2025 3[facility] MCV 91.2 79.0 - 98.0 FL LAB HEMETOLOGY METHOD 03/28/2025 3:[facility] MCH 29.7 27.0 - 32.0 pcg LAB HEMETOLOGY METHOD 03/28/2025 3[facility] MCHC 32.6 32.0 - 37.0 g/dL LAB HEMETOLOGY METHOD 03/28/2025 3:[address] [facility] RDW 12.9 11.0 - 15.0 % LAB HEMETOLOGY METHOD 03/28/2025 3:[facility] Platelets 179 130 - 400 K/mcL LAB HEMETOLOGY METHOD 03/28/2025 3:[address] [facility] MPV 11.4(H) 7.0 - 11.0 FL LAB HEMETOLOGY METHOD 03/28/2025 3:[facility] NRBC 0.0 <1.0 % LAB HEMETOLOGY METHOD 03/28/2025 3:[facility] NRBC Absolute 0.00 <0.10 K/mcL LAB HEMETOLOGY METHOD 03/28/2025 3:[address] [facility] Neutrophils Relative 54.3 % LAB HEMETOLOGY METHOD 03/28/2025 3:[address] [facility] Lymphocytes Relative 31.7 % LAB HEMETOLOGY METHOD 03/28/2025 3:[address] [facility] Monocytes Relative 9.5 % LAB HEMETOLOGY METHOD 03/28/2025 3:[address] [facility] Eosinophils Relative 3.1 % LAB HEMETOLOGY METHOD 03/28/2025 3:[address] [facility] Basophils Relative 1.2 % LAB HEMETOLOGY METHOD 03/28/2025 3:[address] [facility] Immature Granulocytes Relative 0.2 % LAB HEMETOLOGY METHOD 03/28/2025 3:[address] [facility] Neutrophils Absolute 2.80 1.50 - 7.00 K/mcL LAB HEMETOLOGY METHOD 03/28/2025 3:[address] [facility] Lymphocytes Absolute 1.63 1.00 - 5.00 K/mcL LAB HEMETOLOGY METHOD 03/28/2025 3:[address] [facility] Monocytes Absolute 0.49 0.20 - 1.00 K/mcL LAB HEMETOLOGY METHOD 03/28/2025 3:[address] [facility] Eosinophils Absolute 0.16 0.00 - 0.50 K/mcL LAB HEMETOLOGY METHOD 03/28/2025 3:[address] [facility] Basophils Absolute 0.06 0.00 - 0.20 K/mcL LAB HEMETOLOGY METHOD 03/28/2025 3:[address] [facility] Immature Granulocytes Absolute 0.01 0.00 - 0.03 K/mcL LAB HEMETOLOGY METHOD 03/28/2025 3:[address] [facility] Blood Venous blood specimen / Unknown Venipuncture / Unknown 03/28/2025 1:12 PM EDT 03/28/2025 1:12 PM EDT Girish Olivas NP LAB BLOOD ORDERABLES Final Res ult [facility] [address] [place] [address], [place] [phone] * B-type natriuretic peptide (03/28/2025 1:12 PM EDT) BNP 57 <=100 pcg/mL LAB CHEMISTRY METHOD 03/28/2025 4:01 PM EDT [facility] Blood Venous blood specimen / Unknown Venipuncture / Unknown 03/28/2025 1:12 PM EDT 03/28/2025 1:12 PM EDT Girish Olivas NP LAB BLOOD ORDERABLES Final Res ult Performing Organization Address [facility]/ZIP Co de Phone Number [facility] [address] [place] [address], [place] [phone] * Hemoglobin A1c (03/28/2025 1:12 PM EDT) Hemoglobin A1C 6.2 <6.5 % LAB CHEMISTRY METHOD 03/28/2025 8:31 PM EDT [facility] Mean Bld Glu Estim. 131 mg/dL LAB CHEMISTRY METHOD 03/28/2025 8:31 PM EDT [facility] Blood Venous blood specimen / Unknown Venipuncture / Unknown 03/28/2025 1:12 PM EDT 03/28/2025 1:12 PM EDT Girish Olivas PROCESS TREATER LAB BLOOD ORDERABLES Final Res ult [facility] [address] [place] [address], [place] [phone] * Comprehensive metabolic panel (03/28/2025 1:12 PM EDT) [facility] Signature Sodium 139 133 - 145 mmol/L LAB CHEMISTRY METHOD 03/28/2025 3:[address] [facility] Potassium 4.8 3.5 - 5.5 mmol/L LAB CHEMISTRY METHOD 03/28/2025 3:[address] [facility] Chloride 104 96 - 110 mmol/L LAB CHEMISTRY METHOD 03/28/2025 3:[address] [facility] CO2 30 21 - 32 mmol/L LAB CHEMISTRY METHOD 03/28/2025 3:[address] [facility] Anion Gap 5 3 - 11 LAB CHEMISTRY METHOD 03/28/2025 3:[address] [facility] Glucose 89 70 - 100 mg/dL LAB CHEMISTRY METHOD 03/28/2025 3:[address] [facility] BUN 17 5 - 25 mg/dL LAB CHEMISTRY METHOD 03/28/2025 3:[address] [facility] Creatinine 1.09 0.70 - 1.30 mg/dL LAB CHEMISTRY METHOD 03/28/2025 3:[address] [facility] eGFR 71 >=60 mL/min/1. 73m2 LAB CHEMISTRY METHOD 03/28/2025 3:[address] [facility] Comment:Calculation based on the Chronic Kidney Disease Epidemiology Collaboration (CKD-EPI) equation refit without adjustment for race. BUN/Creatinine Ratio 15.6 LAB CHEMISTRY METHOD 03/28/2025 3:[address] [facility] Calcium 9.4 8.5 - 10.5 mg/dL LAB CHEMISTRY METHOD 03/28/2025 3:[address] [facility] AST (SGOT) 36 10 - 42 unit/L LAB CHEMISTRY METHOD 03/28/2025 3:56 PM EDT [facility] ALT (SGPT) 50 10 - 60 unit/L LAB CHEMISTRY METHOD 03/28/2025 3:56 PM EDT [facility] Alkaline Phosphatase 54 42 - 121 unit/L LAB CHEMISTRY METHOD 03/28/2025 3:56 PM EDT [facility] Total Protein 7.3 6.0 - 8.0 g/dL LAB CHEMISTRY METHOD 03/28/2025 3:56 PM EDT [facility] Albumin 4.0 3.2 - 5.0 g/dL LAB CHEMISTRY METHOD 03/28/2025 3:56 PM EDT [facility] Total Bilirubin 0.9 0.0 - 1.4 mg/dL LAB CHEMISTRY METHOD 03/28/2025 3:56 PM EDT [facility] Blood Venous blood specimen / Unknown Venipuncture / Unknown 03/28/2025 1:12 PM EDT 03/28/2025 1:12 PM EDT Girish Olivas PROCESS TREATER LAB BLOOD ORDERABLES Final Res ult [facility] [address] [place] [address], * Depression Screening (09/24/2023) Pathologist [facility] Depression Screening abstracted Historical Provider HEALTH MAINTENANCE Final Result * Colonoscopy (06/17/2015) Pathologist [facility] Colonoscopy no interpretation , abstracted Anatomical Region Laterality Modality Other Historical Provider HEALTH MAINTENANCE Final Result * Hepatitis C Screening (02/06/2009) Pathologist [facility] Hepatitis C Screening abstracted Historical Provider HEALTH MAINTENANCE Final Result * Abdominal Aortic Aneurysm Screen (12/13/2008) Pathologist [facility] Abdominal Aortic Aneurysm (AAA) Screening abstracted Anatomical Region Laterality Modality Other us Historical Provider HEALTH MAINTENANCE Final Result from Last 3 Months or Most Recently Relevant to Health Maintenance Insurance [employer] Care Teams Geologist Relationship Specialty Start Date End Date Olvin Rocha MD [address] [place] [phone] PCP - General Internal Medicine 08/18/17
--- OUTSIDE RECORDS SUMMARY | 2025-04-04 14:06 | XMS_ITS | Encounter Summary ---
Author Organization [facility] Address [address] [place] [phone] Phone Care Team Providers Care Freight Elevator Erector Name Role Phone Abhilash Isbell MD Primary Care Provider + Encounter Details Date Type Department Care Team (Late st Contact Info) Description 08/10/2023 Procedure Pass [facility] [address] [place] [address] Social History Tobacco Use Types Packs/Day Years [...] 08/10/2023 3:41 PM Uzma King RN * [place] Suicide Severity Rating Scale (Screener/Recent Self-Report) Question [...] documented as of this encounter Care Teams Freight Elevator Erector Relationship Specialty Start Date End Date Abhilash Isbell MD [address] [place] [phone] PCP - General Internal Medicine 01/20/23 documented as of this encounter Additional Source Comments The information contained in this document represents components of the legal health record. It is not the complete legal health record.[facility]
--- OUTSIDE RECORDS SUMMARY | 2025-04-04 14:06 | XMS_ITS | Encounter Summary ---
Author Organization [facility] Address [address] [place] [phone] Phone Care Team Providers Care Molded Goods Inspector Trimmer Name Role Phone Abhilash Isbell MD Primary Care Provider + Encounter Details Date Type Department Care Team (Late st Contact Info) Description 08/10/2023 Procedure Pass [facility], Ct Scan - [address] [address] Social History Tobacco Use Types Packs/Day Years [...] Author No Risk Indicated 08/10/2023 3:41 PM EST Uzma Santillan RN * [place] Suicide Severity Rating Scale (Screener/Recent Self-Report) Question Answer Date of Assessment Author 1. Wish to be (Past 1 Month) No 024 3:41 PM Uzma King RN 2. Non-Specific Active Suici morgan Thoughts (Past 1 Month) No 08/10/2023 3:41 PM EST Calderon Santillan RN 6. Suicidal Behavior (Lifetime) No 3:41 PM EST Uzma Santillan RN documented as of this encounter Plan of Treatment Not on file documented as of this encounter Visit Diagnoses Not on filedocumented in this encounter Additional Health Concerns Infection Onset Date Last Indicated Resolved Time CoV-Risk Comment:Neg covid pt has Flu and PE 08/10/2023 08/10/202307/26 6:56 AM EST Influenza A 08/10/2023 08/10/2023 08/17/2023 1:23 AM EST documented as of this encounter Care Teams Molded Goods Inspector Trimmer Relationship Specialty Start Date End Date Abhilash Isbell MD [address] [place] [phone] PCP - General Internal Medicine 01/20/23 documented as of this encounter Additional Source Comments The information contained in this document represents components of the legal health record. It is not the complete legal health record.[facility]
== END 2025-04-04 11:03 | disposition home or self-care (01) ==
LOC: HO.NEURO 11:02
PROVIDERS: PCP Internal Medicine; Visit Provider Psychiatry & Neurology Neurology
DX: F09 Unspecified mental disorder due to known physiological condition (principal)
CPT/HCPCS: 95816

== ENCOUNTER 2025-04-12 14:49 | Outpatient (AMB) | payer MEDICARE, SELFPAY ==
--- NOTE | 2025-04-12 14:51 | MHC.OFFVIS ---
Vital Signs 04/12/25 14:54 Height 6 ft 4 in Weight 271 lb 8 oz BMI 33.0 BP 106/64 Blood Pressure Location Rt brachial Position Sitting Pulse 80 Pulse Source Pulse Oximeter Pulse Oximetry (%) 96 Oxygen Delivery Method Room Air Intake Visit Reasons: follow up Intake Note: Follow up Cognitive disorder and hypersomnia Billing Specialist Required: No Accompanied by: Self / Same As Patient Allergies amlodipine Allergy (Unknown, Verified 04/12/25 14:52) Unknown cephalexin Allergy (Unknown, Verified 04/12/25 14:52) Unknown pravastatin Allergy (Unknown, Verified 04/12/25 14:52) Unknown simvastatin Allergy (Unknown, Verified 04/12/25 14:52) Unknown HPI Comments Details: 74y/o male comes here for f/u of memory issues sleep apnea.HST was c/w JP -AHI 6 nd 86% He did not start CPAP yet MRI was nonspecific change s EEG was normal History from initial visit- 12/17 He was in the at [facility]- [phone] and concerned that his issues are related to that. He reports for past 20 years he has been having short term memory issues which is progressing.He forgets appointments, meeting etc.He forgets tow era his hearing aids, forgets to take the exit in the [address] , misplacing keys,has trouble doing cross word puzzles , was unable to help his grand daughter with her toys etc. He gets confused with meds and misses doses. he did not wear his hearing aid today. He sleeps ok but reports excessive daytime sleepiness and fatigue. He snores and wakes up 2-3 times at night.His has notcied witnessed apneas.He takes a nap during the day.He has occasional vivid dreams. He had sleep study 15 years ago and used CPAP for 2 mths only. He was also reporting some dizziness when he bends over. Mood is stable [facility] Medical History (Updated 04/12/25 @ 15:21 by Lis Wills MD) Obstructive sleep apnea hypopnea, mild Obstructive sleep apnea hypopnea, mild Hypersomnia Snoring Cognitive disorder Urinary calculi HTN (hypertension) Hyperlipidemia Disturbance in sleep behavior Fatty liver Gout Dysplastic nevus Allergic rhinitis Hard of hearing Urinary incontinence Overweight Chronic shoulder pain Prediabetes GERD (gastroesophageal reflux disease) Surgical History Hx of colonoscopy Family History Father Alcohol abuse by father FH: heart attack Stroke HTN (hypertension) Mother HTN (hypertension) Stroke Diabetes Glaucoma Social History Alcohol intake: current Patient Tobacco Use Status: Former Tobacco user Physical Exam Vital Signs: Last Vital Signs Pulse 80 04/12/25 14:54 BP 106/64 04/12/25 14:54 Pulse Ox 96 04/12/25 14:54 Oxygen Delivery Method Room Air 04/12/25 14:54 BMI result Body Mass Index 33.0 Const General: cooperative and comfortable Nutritional Appearance: obese Orientation/consciousness: patient oriented x3 Eyes Pupils: Equal, round and reactive pupils present Neuro General: patient oriented x3, tone normal, moves all extremities and no focal motor deficits Cranial nerves: Yes Facial sensation intact/muscles of mastication intact, Yes Equal, round and reactive pupils present, Yes Bilaterally intact EOM present, Yes Nystagmus not present, Yes Normal facial strength present, Yes Midline tongue present, Yes Symmetric palate elevation present and Yes Ability to bilaterally elevate shoulders present Cognition (Neuro): normal cognition Gait exam (Neuro): Antalgic gait present Motor exam (neuro): 5/5 motor strength present throughout and Normal motor muscle tone present throughout Coordination: [id number] test normal Assessment & Plan Assessment & Plan (1) Cognitive disorder: Comment: He tested well on MMSE. The cognitive probelems are likely due to untreated sleep apnea Code(s): F09 - Unspecified mental disorder due to known physiological condition Category: Medical (2) Obstructive sleep apnea hypopnea, mild: Code(s): G47.33 - Obstructive sleep apnea (adult) (pediatric) Category: Medical Plan Discussed MRI results REviewed home sleep test Start CPAP 5-20 cm of water - compliance stressed.. Coding Level of Care Code Est Pt Level 4 (81863) Complex EM visit Add On G2211 Diagnoses Cognitive disorder F09 Obstructive sleep apnea hypopnea, mild G47.33
[2025-04-12 14:54] VITALS: BP 106/64; PULSE 80; O2SAT 96; BMI 33.0
--- OUTSIDE RECORDS SUMMARY | 2025-04-12 16:30 | XMS_ITS | Clinical Summary ---
Author Organization [facility] Address [address] [place] [address] Phone Care Team Providers Care Dolphin Trainer Name Role Phone Abhilash Isbell MD Primary [...] EST) SODIUM 138 133 - 146 mmol/L [facility] CHLORIDE 103 96 - 108 mmol/L [facility] POTASSIUM 4.3 3.3 - 5.1 mmol/L [facility] CO2 26 21 - 35 mmol/L [facility] BUN 16 6 - 19 mg/dL [facility] CREATININE 1.10 0.5 - 1.5 mg/dL [facility] GLUCOSE 120(H) 70 - 99 mg/dL [facility] CALCIUM 9.4 8.4 - 10.3 mg/dL [facility] EGFR 71 >59 mL/min/1.7 3m2 [facility] Comment:Estimated glomerular filtration rate calculated using the CKD-EPI refit equation. ANION GAP 13 10 - 20 mmol/L [facility] Blood 08/12/2023 5:55 AM EST 08/12/2023 6:17 AM EST us Vianney Suero MD LAB BLOOD ORDERABLES Final Resu lt [facility] [address] [place], [place] [id number] from Last 3 Months or Most Recently Relevant to Health Maintenance Insurance [facility] [employer] [place] SUPPLEMENT MEDICARE PART A & [place] [address] [place] [address] [employer] [place] MEDIC[employer] SUPPLEMENT MEDICARE PART A & [place] [address] [place] [address] [facility] MEDICARE SUPPLEMENT MEDICARE PART A & B [facility] MEDICARE [facility] MEDICARE PART A & B [facility] [employer] [place] MEDIC[place] SUPPLEMENT MEDICARE PART A & [place] [address] [place] [address] [employer] [place] MEDIC[place] SUPPLEMENT MEDICARE PART A & B [facility] Advance Directives For more information, please contact: [phone] (9AM - 5PM [facility], Wednesday-Wednesday) * Full Code (Latest Code Status on File) Date Activated Date Inactivated Comments 08/10/2023 10:13 PM Question Answer Comments Code Status Confirmed With: Patient Code Status Communicated To: Inpatient Attending Care Teams Dolphin Trainer Relationship Specialty Start Date End Date Abhilash Isbell MD [address] [place] [phone] PCP - General Internal Medicine 01/20/23 Additional Source Comments The information contained in this document represents components of the legal health record. It is not the complete legal health record.[facility]
--- OUTSIDE RECORDS SUMMARY | 2025-04-12 16:30 | XMS_ITS | Encounter Summary ---
Author Organization [facility] Address [address] [place] [phone] Phone Care Team Providers Care Seam Stayer Name Role Phone Abhilash Isbell MD Primary Care Provider + Encounter Details Date Type Department Care Team (Late st Contact Info) Description 08/10/2023 Procedure Pass [facility], Ct Scan - [address] [id number] Social History Tobacco Use Types Packs/Day Years [...] 3:41 PM EST Uzma Santillan RN * [place] Suicide Severity Rating Scale (Screener/Recent Self-Report) Question [...] documented as of this encounter Care Teams Seam Stayer Relationship Specialty Start Date End Date Abhilash Isbell MD [address] [place] [phone] PCP - General Internal Medicine 01/20/23 documented as of this encounter Additional Source Comments The information contained in this document represents components of the legal health record. It is not the complete legal health record.[facility]
--- OUTSIDE RECORDS SUMMARY | 2025-04-12 16:30 | XMS_ITS | Clinical Summary ---
Author Organization [address] Address [address] [place] [phone] Phone Care Team Providers Care Bankruptcy Law Specialist Name Role Phone Olvin Rocha MD Primary Care Provider [phone] Allergies Active Allergy Reactions Criticality Noted Date [...] Visit [facility] - [facility] [address] [facility] [place] [address] Girish Olivas NP Adult general medical exam (Primary Dx); Fatty liver; Hypertension, unspecified type; Overweight; Prediabetes; Prostate cancer screening; Swelling 01/17/[address] [place] [address] Olvin Rocha MD 01/17/[address] [address] Olvin Rocha MD 01/16/[address] [address] Olvin Rocha MD 01/15/[address] [address] Olvin Rocha MD 01/10/2025 4:30 PM EDT [facility] Internal [address] [address] Olvin Rocha MD Anxiety (Primary Dx) from [...] HISTORICAL MOLE (REMOVAL OF) COLONOSCOPY 02/27 PROCEDURE: NV COLONOSCOPY STOMA DX INCLUDING COLLJ SPEC SPX; [...] LAB CHEMISTRY METHOD 03/28/2025 3:56 PM EDT [facility] Bilirubin, Direct 0.3 0.0 - 0.3 mg/dL LAB CHEMISTRY METHOD 03/28/2025 3:56 PM EDT [facility] Bilirubin, Indirect 0.6 0.0 - 1.1 mg/dL LAB CHEMISTRY METHOD 03/28/2025 3:56 PM EDT [facility] Blood Venous blood specimen / Unknown Venipuncture / Unknown 03/28/2025 1:12 PM EDT 03/28/2025 1:12 PM EDT us Olvin Rocha MD LAB BLOOD ORDERABLES Elizabeth l Result [facility] [address] [place] [address], [place] [phone] * Lipid panel with reflex to direct LDL (03/28/2025 1:12 PM EDT) Cholesterol 155 0 - 200 mg/dL LAB CHEMISTRY METHOD 03/28/2025 3:56 PM EDT [facility] Triglycerides 99 0 - 150 mg/dL LAB CHEMISTRY METHOD 03/28/2025 3:56 PM EDT [facility] HDL 46 >=40 mg/dL LAB CHEMISTRY METHOD 03/28/2025 3:56 PM EDT [facility] LDL Calculated 89 0 - 100 mg/dL LAB CHEMISTRY METHOD 03/28/2025 3:56 PM EDT [facility] Comment:Estimated LDL Calcul ated using equation: Total cholesterol - HDL cholesterol - (Triglycerides/5) VLDL Cholesterol Janes 19.8 mg/dL LAB CHEMISTRY METHOD 03/28/2025 3:56 PM EDT [facility] Non HDL Chol. (LDL+VLDL) 109 <145 mg/dL LAB CHEMISTRY METHOD 03/28/2025 3:56 PM EDT [facility] Chol/HDL Ratio 3.4 0.0 - 4.4 LAB CHEMISTRY METHOD 03/28/2025 3:56 PM EDT [facility] Blood Venous blood specimen / Unknown Venipuncture / Unknown 03/28/2025 1:12 PM EDT 03/28/2025 1:12 PM EDT Girish Olivas NP LAB BLOOD ORDERABLES Final Res ult [facility] [address] [place] [address], [place] [phone] * (ABNORMAL) CBC auto differential (03/28/2025 1:12 PM EDT) [facility] WBC 5.2 4.8 - 10.8 K/mcL LAB HEMETOLOGY METHOD 03/28/2025 3:22 PM EDT [facility] RBC 5.30 4.50 - 5.50 M/mcL LAB H[facility]OLOGY [facility] Hemoglobin 15.8 13.5 - 17.5 g/dL LAB HEMETOLOGY METHOD 03/28[facility]2025 3[facility] Hematocrit 48.5 42.0 - 54.0 % LAB HEMETOLOGY METHOD 03/28/2025 3[facility] MCV 91.2 79.0 - 98.0 FL LAB HEMETOLOGY METHOD 03/28/2025 3:[facility] MCH 29.7 27.0 - 32.0 pcg LAB HEMETOLOGY METHOD 03/28/2025 3[facility] MCHC 32.6 32.0 - 37.0 g/dL LAB HEMETOLOGY METHOD 03/28/2025 3:22 PM [facility] RDW 12.9 11.0 - 15.0 % LAB HEMETOLOGY METHOD 03/28/2025 3[facility] Platelets 179 130 - 400 K/mcL LAB HEMETOLOGY METHOD 03/28/2025 3:22 PM [facility] MPV 11.4(H) 7.0 - 11.0 FL LAB HEMETOLOGY METHOD 03/28/2025 3:[facility] NRBC 0.0 <1.0 % LAB HEMETOLOGY METHOD 03/28/2025 3:[facility] NRBC Absolute 0.00 <0.10 K/mcL LAB HEMETOLOGY METHOD 03/28/2025 3:22 PM [facility] Neutrophils Relative 54.3 % LAB HEMETOLOGY METHOD 03/28/2025 3:22 PM [facility] Lymphocytes Relative 31.7 % LAB HEMETOLOGY METHOD 03/28/2025 3:22 PM [facility] Monocytes Relative 9.5 % LAB HEMETOLOGY METHOD 03/28/2025 3:22 PM [facility] Eosinophils Relative 3.1 % LAB HEMETOLOGY METHOD 03/28/2025 3:22 PM [facility] Basophils Relative 1.2 % LAB HEMETOLOGY METHOD 03/28/2025 3:22 PM [facility] Immature Granulocytes Relative 0.2 % LAB HEMETOLOGY METHOD 03/28/2025 3:22 PM [facility] Neutrophils Absolute 2.80 1.50 - 7.00 K/mcL LAB HEMETOLOGY METHOD 03/28/2025 3:22 PM [facility] Lymphocytes Absolute 1.63 1.00 - 5.00 K/mcL LAB HEMETOLOGY METHOD 03/28/2025 3:22 PM [facility] Monocytes Absolute 0.49 0.20 - 1.00 K/mcL LAB HEMETOLOGY METHOD 03/28/2025 3:22 PM [facility] Eosinophils Absolute 0.16 0.00 - 0.50 K/mcL LAB HEMETOLOGY METHOD 03/28/2025 3:22 PM [facility] Basophils Absolute 0.06 0.00 - 0.20 K/mcL LAB HEMETOLOGY METHOD 03/28/2025 3:22 PM [facility] Immature Granulocytes Absolute 0.01 0.00 - 0.03 K/mcL LAB HEMETOLOGY METHOD 03/28/2025 3:22 PM [facility] Blood Venous blood specimen / Unknown Venipuncture / Unknown 03/28/2025 1:12 PM EDT 03/28/2025 1:12 PM EDT Girish Olivas NP LAB BLOOD ORDERABLES Final Res ult [facility] [address] [place] [address], [place] [phone] * B-type natriuretic peptide (03/28/2025 1:12 PM EDT) BNP 57 <=100 pcg/mL LAB CHEMISTRY METHOD 03/28/2025 4:01 PM EDT [facility] Blood Venous blood specimen / Unknown Venipuncture / Unknown 03/28/2025 1:12 PM EDT 03/28/2025 1:12 PM EDT Girish Olivas NP LAB BLOOD ORDERABLES Final Res ult Performing Organization Address [facility]/ZIP Co de Phone Number [facility] [address] [place] [address], [place] [phone] * Hemoglobin A1c (03/28/2025 1:12 PM EDT) Hemoglobin A1C 6.2 <6.5 % LAB CHEMISTRY METHOD 03/28/2025 8:31 PM EDT [facility] Mean Bld Glu Estim. 131 mg/dL LAB CHEMISTRY METHOD 03/28/2025 8:31 PM EDT [facility] Blood Venous blood specimen / Unknown Venipuncture / Unknown 03/28/2025 1:12 PM EDT 03/28/2025 1:12 PM EDT Girish Olivas PAPER BAG PRESS OPERATOR LAB BLOOD ORDERABLES Final Res ult [facility] [address] [place] [address], [place] [phone] * Comprehensive metabolic panel (03/28/2025 1:12 PM EDT) [facility] Signature Sodium 139 133 - 145 mmol/L LAB CHEMISTRY METHOD 03/28/2025 3:56 PM [facility] Potassium 4.8 3.5 - 5.5 mmol/L LAB CHEMISTRY METHOD 03/28/2025 3:56 PM [facility] Chloride 104 96 - 110 mmol/L LAB CHEMISTRY METHOD 03/28/2025 3:56 PM [facility] CO2 30 21 - 32 mmol/L LAB CHEMISTRY METHOD 03/28/2025 3:56 PM [facility] Anion Gap 5 3 - 11 LAB CHEMISTRY METHOD 03/28/2025 3:56 PM [facility] Glucose 89 70 - 100 mg/dL LAB CHEMISTRY METHOD 03/28/2025 3:56 PM [facility] BUN 17 5 - 25 mg/dL LAB CHEMISTRY METHOD 03/28/2025 3:56 PM [facility] Creatinine 1.09 0.70 - 1.30 mg/dL LAB CHEMISTRY METHOD 03/28/2025 3:56 PM [facility] eGFR 71 >=60 mL/min/1. 73m2 LAB CHEMISTRY METHOD 03/28/2025 3:56 PM [facility] Comment:Calculation based on the Chronic Kidney Disease Epidemiology Collaboration (CKD-EPI) equation refit without adjustment for race. BUN/Creatinine Ratio 15.6 LAB CHEMISTRY METHOD 03/28/2025 3:56 PM [facility] Calcium 9.4 8.5 - 10.5 mg/dL LAB CHEMISTRY METHOD 03/28/2025 3:56 PM [facility] AST (SGOT) 36 10 - 42 unit/L LAB CHEMISTRY METHOD 03/28/2025 3:56 PM EDT [facility] ALT (SGPT) 50 10 - 60 unit/L LAB CHEMISTRY METHOD 03/28/2025 3:56 PM EDT [facility] Alkaline Phosphatase 54 42 - 121 unit/L LAB CHEMISTRY METHOD 03/28/2025 3:56 PM EDT [facility] Total Protein 7.3 6.0 - 8.0 g/dL LAB CHEMISTRY METHOD 03/28/2025 3:56 PM EDT [facility] Albumin 4.0 3.2 - 5.0 g/dL LAB CHEMISTRY METHOD 03/28/2025 3:56 PM EDT [facility] Total Bilirubin 0.9 0.0 - 1.4 mg/dL LAB CHEMISTRY METHOD 03/28/2025 3:56 PM EDT [facility] Blood Venous blood specimen / Unknown Venipuncture / Unknown 03/28/2025 1:12 PM EDT 03/28/2025 1:12 PM EDT Girish Olivas PAPER BAG PRESS OPERATOR LAB BLOOD ORDERABLES Final Res ult [facility] [address] [place] [address], * Depression Screening (09/24/2023) Pathologist [facility] Depression Screening abstracted Historical Provider HEALTH MAINTENANCE Final Result * Colonoscopy (06/17/2015) Pathologist [facility] Colonoscopy no interpretation , abstracted Anatomical Region Laterality Modality Other Historical Provider HEALTH MAINTENANCE Final Result * Hepatitis C Screening (02/06/2009) Pathologist [facility] Hepatitis C Screening abstracted Historical Provider HEALTH MAINTENANCE Final Result * Abdominal Aortic Aneurysm Screen (12/13/2008) Pathologist [facility] Abdominal Aortic Aneurysm (AAA) Screening abstracted Anatomical Region Laterality Modality Other us Historical Provider HEALTH MAINTENANCE Final Result from Last 3 Months or Most Recently Relevant to Health Maintenance Insurance [employer] [place] MEDIC[employer] ADVANTAGE Care Teams Bankruptcy Law Specialist Relationship Specialty Start Date End Date Olvin Rocha MD [address] [place] [phone] PCP - General Internal Medicine 08/18/17
--- OUTSIDE RECORDS SUMMARY | 2025-04-12 16:30 | XMS_ITS | Encounter Summary ---
Author Organization [facility] Address [address] [place] [phone] Phone Care Team Providers Care Model Maker Plaster Name Role Phone Abhilash Isbell MD Primary Care Provider + Encounter Details Date Type Department Care Team (Late st Contact Info) Description 08/10/2023 Procedure Pass [facility] [address] [place] [address] Social History Tobacco Use Types Packs/Day Years [...] 08/10/2023 3:41 PM Uzma King RN * [place] Suicide Severity Rating Scale (Screener/Recent Self-Report) Question [...] documented as of this encounter Care Teams Model Maker Plaster Relationship Specialty Start Date End Date Abhilash Isbell MD [address] [place] [phone] PCP - General Internal Medicine 01/20/23 documented as of this encounter Additional Source Comments The information contained in this document represents components of the legal health record. It is not the complete legal health record.[facility]
== END 2025-04-12 15:30 | disposition home or self-care (01) ==
LOC: HO.HSMS 14:49
PROVIDERS: PCP Internal Medicine; Visit Provider Psychiatry & Neurology Neurology
DX: R41.89 Other symptoms and signs involving cognitive functions and awareness (principal); G47.33 Obstructive sleep apnea (adult) (pediatric)
CPT/HCPCS: 99214; G2211

== ENCOUNTER → 2025-04-12 14:49 | Outpatient (BNVA) | payer MEDICARE, SELFPAY | PROVIDERS: PCP Internal Medicine; Visit Provider Psychiatry & Neurology Neurology | DX: F09 Unspecified mental disorder due to known physiological condition (principal); G47.33 Obstructive sleep apnea (adult) (pediatric) | CPT/HCPCS: 99212 ==